=== PATIENT | female | born 1955 | race Caucasian/White ===

== ENCOUNTER 2019-08-26 17:24 | Inpatient (IN) ==
[2019-08-26] MEDS ORDERED: ASPIRIN PO ONE (17:57)
--- NOTE | 2019-08-26 18:41 | Diag Imaging Result Doc PS360 ---
CHEST-2 VIEWS - 08/26/2019 INDICATION: cp/productive cough COMPARISON: 08/11/2019 FINDINGS: There is some stable ill-defined infiltrate throughout the right midlung and lung base. There is also some minimal stable infiltrate throughout the left lung base. No new infiltrates. Heart size remains borderline. Pulmonary vascularity is top normal. No pneumothorax or pleural effusion. IMPRESSION: Stable ill-defined bilateral infiltrates consistent with residual bronchopneumonia or pulmonary edema. Electronically signed by Rober España 08/26/2019 6:39 PM
--- NOTE | 2019-08-26 19:54 | PROVIDER DOCUMENTATION ---
HPI-Chest Pain - General Chief Complaint: Chest Pain Stated Complaint: CP HEART PATIENT Time Seen by Provider: 08/26/19 19:43 Source: patient Allergies/Adverse Reactions: Patient Allergies Allergy/AdvReac Type Severity Reaction Status Date / Time allopurinol Allergy Unknown Verified 07/23/19 10:32 Iodinated Contrast Media Allergy Unknown Verified 07/23/19 10:32 [IV Dye] lisinopril Allergy Unknown Verified 07/23/19 10:32 Sulfa (Sulfonamide Allergy Unknown Verified 07/23/19 10:32 Antibiotics) Home Medications: Home Medication List Medication Instructions Recorded Confirmed Last Taken Type ATORVAstatin [Lipitor] 80 mg PO DAILY 05/23/19 08/11/19 08/11/19 History Albuterol Sulfate [Proair 90 mcg INHALATION Q6H PRN PRN 05/23/19 08/11/19 08/11/19 History Respiclick] Alogliptin Benzoate [Alogliptin] 6.25 mg PO DAILY 05/23/19 08/11/19 08/11/19 History Aspirin EC 81 mg PO DAILY 05/23/19 08/11/19 08/11/19 History Baclofen 10 mg PO DAILY 05/23/19 08/11/19 08/11/19 History Carvedilol 6.25 mg PO BID 05/23/19 08/11/19 08/11/19 History Cholecalciferol (Vit D3) [Vitamin 1,000 unit PO DAILY 05/23/19 08/11/19 08/11/19 History D3] Citalopram [Celexa] 40 mg PO DAILY 05/23/19 08/11/19 08/11/19 History Ferrous Sulfate 324 mg PO DAILY 05/23/19 08/11/19 08/11/19 History Gabapentin 300 mg PO BID 05/23/19 08/11/19 08/11/19 History Insulin Aspart [Novolog Flexpen] 4 unit SQ TID 05/23/19 08/11/19 08/11/19 Histor y Insulin Glargine,Hum.rec.anlog 50 units SQ QHS 05/23/19 08/11/19 08/10/19 History [Lantus Solostar] Isosorbide Mononitrate [Isosorbide 90 mg PO DAILY 05/23/19 08/11/19 08/11/19 History Mononitrate ER] Levothyroxine [Synthroid] 88 microgm PO DAILY 05/23/19 08/11/19 08/11/19 History Lidocaine 4% Topical Solution 50 ml .SEE ORDER Q8H PRN PRN 05/23/19 08/11/19 08/11/19 History [Xylocaine 4% Topical Solution] Loratadine 10 mg PO DAILY 05/23/19 08/11/19 08/11/19 History Magnesium Oxide 400 mg PO DAILY 05/23/19 08/11/19 08/11/19 History Ondansetron [Zofran] 8 mg PO BID 05/23/19 08/11/19 08/11/19 History Oxybutynin Chloride 5 mg PO DAILY 05/23/19 08/11/19 08/11/19 History Tiotropium [place] Inhaler 18 mcg PO DAILY 05/23/19 08/11/19 08/11/19 History [Spiriva] Torsemide 20 mg PO BID 05/23/19 08/11/19 08/11/19 History Amoxicillin/Pot Clavulanate 500 mg PO BID 08/11/19 08/11/19 08/11/19 History [Augmentin] - History of Present Illness-CP Nature of Presenting Problem: 64 yof presents with c/o pressure like CP that radiates in to R neck. She took NTG at home and the pain improved wIth 2ND dose. She reports the pain remains low and tight without radiation at this time. She denies SOB, N/V/D, sweating when the pain occurred. [facility] and if admission is needed request to be sent there if bed is available Location: reports: substernal Chest Pain Radiation: reports: neck Quality of Pain: reports: pressure Severity in ED: moderate Onset/Duration: 4-6 hours ago Timing: still present, improving Context/Activities at Onset: reports: none Modifying Factors: improves with: other (ntg) Associated Symptoms: reports: denies symptoms Nitro Today/Relief: 0.4 mg x 2 Aspirin Treatment Today: no aspirin today Prior Chest Pain/Cardiac Workup: reports: angina Similar Symptoms Previously?: Yes Recently Seen Here or By Another Healthcare Provider: No Review of Systems - Adult - REVIEW OF SYSTEMS - ADULT Constitutional: reports: no symptoms reported. denies: see HPI, chills, fever, fatique, night sweats, weight gain, weight loss, other Eyes: reports: no symptoms reported. denies: see HPI, discharge, dry eyes, decreased vision, blurred vision, double vision, eye pain, redness, other Ears, Nose, Mouth & Throat: reports: no symptoms reported. denies: see HPI, ear discharge, ear pain, hearing loss, tinnitus, epistaxis, sinus problem, nose pain, loose teeth, mouth/dental pain, mouth swelling, hoarseness, throat pain, throat swelling, other Cardiovascular: reports: see HPI, chest pain, edema (reports not worse than usual) Respiratory: reports: no symptoms reported. denies: see HPI, chronic cough, cough, dyspnea on exertion, excessive sputum production, hemoptysis, pleurisy, shortness of breath, wheezing, other Gastrointestinal: reports: no symptoms reported. denies: see HPI, abdominal pain, hematemesis, constipation, diarrhea, difficulty swallowing, frequent heartburn, nausea, poor appetite, rectal bleeding, vomiting, other Genitourinary: reports: no symptoms reported. denies: see HPI, dysuria, discharge, frequency, flank pain, frequent UTI's, hematuria, hesitency, incontinence, urinary retention, urgency, other Musculoskeletal: reports: no symptoms reported. denies: see HPI, bone pain, back pain, frequent leg cramps, joint pain, joint swelling, muscle aches, muscle weakness, neck pain, other Integumentary: reports: no symptoms reported. denies: see HPI, hives, hair loss, itching, mole changes, nail changes, rash, skin sores/ulcer, skin thickening, other Neurological: reports: no symptoms reported. denies: see HPI, ataxia, dizziness/vertigo, headache/migraines, loss of balance, numbness, paresthesia, seizure, slurred speech, syncope, tremors, other Psychiatric: reports: no symptoms reported. denies: see HPI, anxiety, anti-depressant use, alcohol/drug dependence, depression, emotional problems, insomnia, panic attacks, suicidal thoughts, other Endocrine: reports: no symptoms reported. denies: see HPI, change in skin pigment, excessive sweating, goiter, cold intolerance, heat intolerance, increased hunger, increased thirst, polyuria, other Hematologic/Lymphatic: reports: no symptoms reported. denies: see HPI, blood clots, easy bruising, low blood count, lymphedema, prolonged bleeding, swollen lymph nodes, transfusions, other Allergic/Immunologic: reports: no symptoms reported. denies: see HPI, allergic reactions, allergic rhinitis, asthma, eczema, food allergy, frequent infections, hay fever, hives, positive PPD, urticaria, other Past History - Adult - PAST MEDICAL HISTORY-ADULT Review of Records: reports: Nursing Assessment Review, Social history reviewed & non-contributory. Cardiovascular: reports: CHF, HTN. denies: [place] Respiratory: reports: asthma, COPD Musculoskeletal: reports: denies history Neurological: reports: denies history Psychiatric: reports: denies history Endocrine/Immune: reports: thyroid disorder (hypothyroid) - PRIOR SURGERIES/PROCEDURES Surgical/Procedure History: denies: recent surgery Physical Exam-General - PHYSICAL EXAM-ADULT Initial Vital Signs Reviewed: Yes - CONSTITUTIONAL General Appearance: appears well, alert, no apparent distress - EYES Eyes: PERRL/EOMI, pink conjunctivae - HEAD, EARS, NOSE, MOUTH & THROAT HENMT: normocephalic/atraumatic, moist mucous membranes, normal ENT inspection - NECK Neck: non-tender, full range of motion, supple - RESPIRATORY Respiratory: chest non-tender, lungs clear, normal breath sounds, no pleuratic chest pain, no respiratory distress, no accessory muscle use - CARDIOVASCULAR Cardiovascular: normal peripheral pulses, regular rate, rhythm. negative: no edema (ble edema +1) - GASTROINTESTINAL (ABDOMEN) Abdominal Exam: normal bowel sounds, non tender, soft - LYMPHATIC Lymphatic: no adenopathy - MUSCULOSKELETAL Back Exam: normal inspection, no CVA tenderness, no vertebral tenderness Extremity: normal range of motion, non-tender, normal gait, swelling (BLE EDEMA) Peripheral Pulses: radial (R): 2+, radial (L): 2+ - SKIN Integumentary: normal color, normal turgor, warm/dry - NEUROLOGIC Neurologic: grossly normal - PSYCHIATRIC Psych/Mental Status: normal mood/affect, oriented x 3 - HEART Score HEART Score: History: Moderately Suspicious HEART Score: ECG: Normal HEART Score: Age: > or = 65 Years HEART Score: Risk Factors for Atherosclerotic Disease: > or = 3 Risk Factors or History of Atherosclerotic Disease HEART Score: Troponin: < or = Normal Limit Total HEART Score:: 5 Progress - PLAN OF CARE/RESULTS Progress/Plan/Lab Results: Vital Signs - 8 hr 08/26/19 17:30 08/26/19 20:53 08/26/19 21:01 Temperature 98.1 F 98.1 F Pulse Rate 79 69 67 Respiratory Rate 18 16 17 Blood Pressure 181/90 201/97 193/95 O2 Sat by Pulse Oximetry 97 100 100 08/26/19 21:31 Temperature Pulse Rate 67 Respiratory Rate 16 Blood Pressure 187/87 O2 Sat by Pulse Oximetry 99 Laboratory Results - last 24 hr 08/26/19 08/26/19 08/26/19 17:57 17:57 17:57 WBC 5.98 RBC 2.98 L Hgb 9.1 L Hct 30.4 L MCV 102.0 H MCH 30.5 MCHC 29.9 L RDW Std Deviation 14.9 H Plt Count 246 MPV 9.4 Neut % (Auto) 60.5 Lymph % (Auto) 23.4 [place] % (Auto) 11.7 H Eos % (Auto) 3.7 Baso % (Auto) 0.7 Neut # (Auto) 3.62 Lymph # (Auto) 1.40 [place] # (Auto) 0.70 H Eos # (Auto) 0.22 Baso # (Auto) 0.04 PT INR PTT (Actin FS) Sodium 143 Potassium 5.5 H Chloride 104 Carbon Dioxide 24 L Anion Gap 15 BUN 52 H Creatinine 2.8 H Estimated GFR/1.73 m2 17 BUN/Creatinine Ratio 19 Glucose 194 H Calculated Osmolality 304 Calcium 9.0 Total Bilirubin 0.37 AST 16 ALT 14 Alkaline Phosphatase 103 Creatine Kinase 219 H Creatine Kinase Index 1.8 CK-MB (CK-2) 3.86 Troponin T Wbl-F-Dsqddrtrovo Pept 982 H Total Protein 6.8 Albumin 4.0 Globulin 2.8 Albumin/Globulin Ratio 1.4 08/26/19 08/26/19 17:57 17:57 WBC RBC Hgb Hct MCV MCH MCHC RDW Std Deviation Plt Count MPV Neut % (Auto) Lymph % (Auto) [place] % (Auto) Eos % (Auto) Baso % (Auto) Neut # (Auto) Lymph # (Auto) [place] # (Auto) Eos # (Auto) Baso # (Auto) PT 13.0 INR 0.97 PTT (Actin FS) 23.9 Sodium Potassium Chloride Carbon Dioxide Anion Gap BUN Creatinine Estimated GFR/1.73 m2 BUN/Creatinine Ratio Glucose Calculated Osmolality Calcium Total Bilirubin AST ALT Alkaline Phosphatase Creatine Kinase Creatine Kinase Index CK-MB (CK-2) Troponin T < 0.010 Law-G-Bxgkcimmwej Pept Total Protein Albumin Globulin Albumin/Globulin Ratio Orders Category Date Time Status Cardiac Monitoring DIRECTED Care 08/26/19 17:58 Active Oxygen Therapy- ED Nursing DIRECTED Care 08/26/19 17:58 Active Saline Loc NOW Care 08/26/19 17:58 Active CHEST-2 VIEWS [RAD] Stat Exams 08/26/19 17:58 Completed CBC WITH ELECTRONIC DIFF [HEME] Stat Lab 08/26/19 17:57 Completed CK PROFILE [SP CHEM] Stat Lab 08/26/19 17:57 Completed COMPREHENSIVE METABOLIC PANEL [CHEM] Stat Lab 08/26/19 17:57 Completed PRO B-NATRIURETIC PEPTIDE Stat Lab 08/26/19 17:57 Completed PROTIME WITH INR [COAG] Stat Lab 08/26/19 17:57 Completed PTT [COAG] Stat Lab 08/26/19 17:57 Completed TROPONIN T Stat Lab 08/26/19 17:57 Completed TROPONIN T Stat Lab 08/26/19 21:38 Received Aspirin Med 08/26/19 17:57 Discontinued 325 mg PO NOW ONE Levofloxacin 500 mg/D5w [Levaquin 500 mg/D5w] Med 08/26/19 21:52 Active 500 mg in 100 ml IV NOW CP/SOB/Palp >45 yrs of Age Stat Oth 08/26/19 17:57 Ordered EKG [EKG] Stat Ther 08/26/19 17:58 Draft EKG [EKG] Stat Ther 08/26/19 20:35 Ordered Result Diagrams: 08/26/19 17:57 08/26/19 17:57 - EKG 1 Time of EKG reading by physician:: 17:42 EKG Read and Signed by:: Quinton Patel EKG Interpretation (*Must complete 3 of following elements*): Normal Rate: 78 Rhythm: NSR [place]: normal QRS: normal NE Interval: normal ST Wave: normal Prior EKG Comparison: unchanged from prior 2 Time of EKG reading by physician:: 21:30 EKG Read and Signed by:: Lida Escalante EKG Interpretation (*Must complete 3 of following elements*): Normal Rate: 66 Rhythm: NSR [place]: normal QRS: normal NE Interval: normal ST Wave: normal Prior EKG Comparison: unchanged from prior - CONSULTS/PCP/HOSPITALIST Notification #1 *Consult/PCP/Hospitalist*: [facility] Time Discussed: 21:39 Reason/Comments: NO BEDS #2 Consult: DR HERNANDEZ Time Discussed: 21:53 Consult Disposition: Admit Departure - Departure Date of Disposition Decision: 08/26/19 Time of Disposition Decision: 21:54 DIAGNOSIS: Pneumonia, Chest pain Disposition: HOME 01 Certified Medical Emergency: Emergent Condition: Stable Referrals and Follow-Ups: None,PCP [Primary Care Provider] - - Critical Care Note This patient required my direct & personal management of CC.: No Attestation - Physician/ JASS Attestation Patient care was provided by Advanced Practice Provider:: Yes Advanced Practice Provider:: Suzanna Levine Advanced Practice Provider documentation review:: The Mid-level provider documentation, treatment plan and medical decision making was reviewed by the physician who agrees with all treatment and medical decision making by the MLP. The physician spent face to face time with patient:: No Advanced Practice Provider documentation review:: Supervising physician onsite and consulted in the evaluation and care of this patient. The physician did not have a face to face encounter with the patient.
[2019-08-26 20:04] LABS: BASO# 0.04 X1000 (0.0-0.2); BASO% 0.7 % (0.0-0.8); EOS# 0.22 X1000 (0.0-0.7); EOS% 3.7 % (0.0-10.0); HEMATOCRIT 30.4 % (37.0-47.0); HEMOGLOBIN 9.1 g/dL (12.0-16.0); LYMPH% 23.4 % (20.5-51.1); MCH 30.5 PG (27-31); MCHC 29.9 g/dL (33-37); MONO% 11.7 % (1.7-9.3); MPV 9.4 FL (7.4-10.4); NEUT# 3.62 X1000 (1.4-6.5); NEUT% 60.5 % (42.2-75.2); PLT 246 X1000 (130-400); RBC 2.98 XMIL (4.2-5.4); RDW 14.9 % (11.5-14.5); WBC 5.98 X1000 (4.8-10.8)
[2019-08-26 20:06] LABS: INR 0.97
[2019-08-26 20:07] LABS: PTT 23.9 Seconds (22.3-41.8)
--- NOTE | 2019-08-26 20:10 | EKG Report ---
Test Performed on : 08/26/2019 5:42:44 PM Test Reason : chest pain Blood Pressure : / mmHG Vent. Rate : 078 BPM Atrial Rate : 078 BPM P-R Int : 158 ms QRS Dur : 080 ms QT Int : 388 ms P-R-T Axes : 050 -01 064 degrees QTc Int : 442 ms Normal sinus rhythm. Normal ECG When compared with ECG of 26-AUG-2019 17:42, (Unconfirmed) Sinus rhythm. has replaced Junctional rhythm. T wave inversion no longer evident in Inferior leads T wave inversion no longer evident in Lateral leads Unconfirmed Result
[2019-08-26 20:34] LABS: ALB/GLOB RATIO 1.4; CREATININE 2.8 mg/dL (0.5-0.9); POTASSIUM 5.5 mmol/L (3.5-5.1); TOTAL BILIRUBIN 0.37 mg/dL (0.20-1.00); TOTAL PROTEIN 6.8 g/dL (6.3-8.3)
[2019-08-26 20:58] LABS: CK INDEX 1.8 (0.0-2.5); CK-MB 3.86 ng/mL (0.0-5.0)
[2019-08-26] MEDS ORDERED: LEVAQUIN 500 MG/D5W 500 MG/100 ML IVPB IV ONE (21:52)
--- NOTE | 2019-08-26 22:57 | EKG Report ---
Test Performed on : 08/26/2019 9:30:37 PM Test Reason : CP Blood Pressure : / mmHG Vent. Rate : 066 BPM Atrial Rate : 066 BPM P-R Int : 158 ms QRS Dur : 080 ms QT Int : 422 ms P-R-T Axes : 047 -07 054 degrees QTc Int : 442 ms Normal sinus rhythm. Cannot rule out Anterior infarct , age undetermined Abnormal ECG When compared with ECG of 26-AUG-2019 17:42, (Unconfirmed) No significant change was found Unconfirmed Result
--- NOTE | 2019-08-26 23:32 | HISTORY AND PHYSICAL ---
PRIMARY CARE PHYSICIAN: At the [facility]. CHIEF COMPLAINT: Chest pain. HISTORY OF PRESENTING ILLNESS: A 64-year-old female with a history of hypertension, diabetes mellitus type 2, CHF and COPD, who had presented to the emergency department with 1-day history of having as substernal pressure-like chest pain. The patient states that she also had some shortness of breath and the pain was radiating up to her jaw/neck region. The patient became concerned and subsequently had come to the emergency department. In the ED, she was evaluated and due to her presenting symptoms, it was thought that we will place her for observation for further evaluation and management. At time of my examination, patient denied any headache, fever, chills, nausea, vomiting, diarrhea, hemoptysis, melena, or any weight changes, but complained of chest pain. PAST MEDICAL HISTORY: Includes hypertension, diabetes mellitus type 2, CHF, hyperlipidemia, COPD, hypothyroidism, chronic kidney disease. PAST SURGICAL HISTORY: Cholecystectomy, cataract surgery. ALLERGIES: Allopurinol, lisinopril, sulfa, and IV contrast dye. CURRENT MEDICATIONS: Albuterol nebulizers q.6 hours, alogliptin 6.25 mg p.o. daily, aspirin 81 mg p.o. daily, atorvastatin 80 mg p.o. daily, carvedilol 6.25 mg p.o. b.i.d., citalopram 40 mg p.o. daily, gabapentin 300 mg p.o. b.i.d., NovoLog Flex Pen 4 units subcu t.i.d., Lantus 50 units subcutaneous at bedtime, isosorbide mononitrate 90 mg p.o. daily, levothyroxine 88 mcg p.o. daily, oxybutynin 5 mg p.o. daily, torsemide 20 mg p.o. b.i.d. SOCIAL HISTORY: No history of smoking, alcohol or illicit drug use. FAMILY HISTORY: Positive for coronary disease in Father. REVIEW OF SYSTEMS: Fourteen-point review of systems is as in HPI. Other systems negative. PHYSICAL EXAMINATION: GENERAL: Cooperative, friendly female. She is resting more comfortably now. VITAL SIGNS: Temperature 97.9 degrees, pulse 67, respirations 16, blood pressure 187/97. HEENT: Atraumatic, normocephalic. Extraocular movements intact. PERRLA. NECK: No masses. CHEST: Bibasilar rales. CARDIOVASCULAR: Regular rate and rhythm. ABDOMEN: Soft. Positive bowel sounds. EXTREMITIES: Trace edema. NEUROLOGIC: She is awake, alert, oriented x3. GENITOURINARY: No bladder distention. SKIN: Warm. LABORATORIES AND STUDIES: WBC 5.98, hemoglobin 9.1, hematocrit 30.4, platelets 246,000. Sodium 143, potassium 5.5, chloride 104, CO2 of 24, BUN is 52, creatinine is 2.8. Glucose is 194, troponin 0.010. Chest x-ray shows residual bronchopneumonia or pulmonary edema. ASSESSMENT: This is a 64-year-old female with a history of hypertension, diabetes mellitus type 2, congestive heart failure, chronic obstructive pulmonary disease, chronic kidney disease, who had presented to the emergency department with 1-day history of having chest pain. We will place the patient for observation for further evaluation and management. 1. Chest pain. 2. Diabetes mellitus type 2. 3. Hypertension. 4. Chronic obstructive pulmonary disease. PLAN: 1. We will admit patient to medical floor with telemetry. 2. We will continue with cardiac workup. Check EKG, check serial cardiac enzymes. Have patient continue on aspirin. Will use sublingual nitroglycerin p.r.n. chest pain. 3. Monitor blood glucose and put patient on sliding scale insulin regimen. 4. We will monitor blood pressure. Resume antihypertensive agents. 5. Continue with DuoNebs p.r.n. 6. Put patient on DVT prophylaxis with SCDs. 7. We will continue to follow and reassess. Make further recommendations based on patient's clinical course. cc: Mario Pierce MD
[2019-08-27] MEDS ORDERED: TYLENOL PO PRN (00:27)
[2019-08-27] MEDS ORDERED: ZOFRAN IV PRN (00:27)
[2019-08-27] MEDS ORDERED: NITROGLYCERIN SL PRN (00:27)
[2019-08-27 02:07] LABS: CK INDEX 1.7 (0.0-2.5); CK-MB 3.02 ng/mL (0.0-5.0)
[2019-08-27 05:37] LABS: CHOLESTEROL 140 mg/dL (0-200); HDL 45 mg/dL (45-65); LDL 64 mg/dL; TRIGLYCERIDES 153 mg/dL (35-135); VLDL 31 mg/dL
[2019-08-27] MEDS ORDERED: PRILOSEC PO SCH (07:00)
[2019-08-27] MEDS ORDERED: ASPIRIN PO SCH (09:00)
[2019-08-27] MEDS: HUMULIN R SUBQ SCH ×4 (11:50→22:55)
[2019-08-27] MEDS: COREG PO SCH ×2 (13:06→22:55)
[2019-08-27] MEDS: ISORDIL PO SCH ×2 (13:06→16:51)
[2019-08-27] MEDS: APRESOLINE PO SCH ×2 (13:06→16:51)
--- NOTE | 2019-08-27 14:04 | Diag Imaging Result Doc PS360 ---
EXAM: CT THORAX W/O CONTRAST INDICATION: chest pain, dyspnea TECHNIQUE: This exam was performed using automated exposure control, adjustment of mA or kV according to patient size, and/or use of iterative reconstruction technique. COMPARISON: None. FINDINGS: There is patchy airspace consolidation throughout the right lung that is worst centrally and at the right lung base consistent with pneumonia. Some of the consolidation is vaguely nodular and there are a few tree-in-bud opacities on the right indicating bronchiolitis. There is much milder consolidation at the lateral left lower lobe and the lingula at the left lung base. There were a few calcified granulomata in the left lower lobe. There is no pleural fluid collection and no pneumothorax. There are calcified mediastinal and left hilar lymph nodes indicating prior granulomatous disease. There is no cardiomegaly. There is a moderate-sized hiatal hernia containing gastric debris and there is air in the esophageal lumen suggesting reflux. Limited views of the upper abdomen are essentially unremarkable, otherwise. IMPRESSION: 1.Patchy infiltrates seen throughout the right lung and much milder infiltrate at the left lung base consistent with multilobar pneumonia. 2.Moderate-sized hiatal hernia with gastric debris and air in the esophagus indicating reflux. Electronically signed by Nuno Mars 08/27/2019 2:02 PM
[2019-08-27] MEDS ORDERED: VENTOLIN HFA INH PRN (15:44)
[2019-08-27] MEDS: ZOSYN 3.375 GM in NS 50 ML IV SCH (19:15)
[2019-08-27] MEDS ORDERED: COREG PO SCH (21:00)
--- NOTE | 2019-08-27 21:08 | PROGRESS NOTE ---
DATE: 08/27/2019 SUBJECTIVE: The patient has a cough. There is some concern over possible pneumonia. She has had a recent aspiration type pneumonia. OBJECTIVE: Blood pressure is 133/49, heart rate 65, respiratory rate 18, temperature 98.8 degrees.Cardiovascular: Regular rate and rhythm. Pulmonary: Bilateral breath sounds. Clear to auscultation. GI: Soft, nontender, nondistended. Bowel sounds are positive. LABORATORY DATA: I do not have any white count today, but was normal yesterday. Sedimentation rate up at 69. Uric acid is 8.3. Chest CT shows some patchy infiltrates consistent with multilobar pneumonia and she has fairly bad reflux too. PROBLEM LIST: 1. Likely recurrent aspiration type pneumonia. We will initiate antibiotics and follow. Apparently, she has had issues with that before. We will get a pulmonary opinion as well. I appreciate Dr. Kim's noncardiac input on that. We will also work on aspiration risk and reflux risk. 2. Chest pain. I guess Dr. Kim feels that this is noncardiac and adjusted her medications. She had an echocardiogram in May that was normal. She had a perfusion scan in May that did not show any major ischemia, so I will defer to them about any other further testing. 3. Type 2 diabetes. We will continue regular medications and monitor. cc: Grupo Rubin MD
--- NOTE | 2019-08-27 21:21 | CARDIOLOGY CONSULTATION ---
DATE: 08/27/2019 CHIEF COMPLAINT: Chest pain. REQUESTING TEAM: Hospitalist. HISTORY: Ms. Roldan is a 64-year-old female who is normally followed by the [facility]. She presented to the emergency room at 7:30 p.m. last night with complaints of recurrent substernal chest pain, radiates to the right side of the neck. She took two nitroglycerin doses and the pain very much remained the same until she showed up in the emergency room. Thereafter, it became like a tightness and eventually gradually subsided. The patient says that this is the same pain that she has had for the past five years. She has had previous evaluations in [place] including a heart catheterization where they told her that she had "three blockages" and they prescribed nitroglycerin. They told her that whenever the pain does not go away after two nitroglycerin, she needs to report to the ER. She was seen recently in this hospital by our team on May 23. At that time, Dr. Kaur saw her. They did an echocardiogram that showed aortic valve sclerosis, trace mitral regurgitation, normal EF of 60%, question of diastolic dysfunction. They did a myocardial perfusion stress test on May 25, that showed a small size, mild intensity fixed defect in the distal anterior septal wall. No ischemia. Medical therapy recommended. The patient has had multiple troponin levels checked thus far, four since yesterday, and previously she has had another four and all of them have been negative. Her proBNP level is slightly elevated at 982 pg/mL. That would be about four times baseline. LDL cholesterol is 64, HDL is 45, triglycerides of 153. The patient feels fine at this time. Her EKG at the time of initial encounter shows sinus rhythm with no ischemic ST changes. Chest x-ray at the time of initial presentation shows stable, ill- defined, bilateral infiltrates consistent with residual bronchopneumonia or pulmonary edema. PAST HISTORY: Positive for hypertension. She also has chronic kidney disease. Her creatinine level during the times that she has been in this hospital has gone from 2.7 up to 2.8, then down to 2.1, and back up to 2.8. She has COPD. She has had some diastolic heart failure, hyperlipidemia, hypothyroidism. SURGICAL HISTORY: She had a cholecystectomy, cataract extraction. SOCIAL HISTORY: She is to her second . She has one son. She is disabled. She is not a smoker or drinker. FAMILY HISTORY: Father had coronary heart disease. ALLERGIES: Allopurinol, IV contrast, lisinopril, sulfa drugs. HOME MEDICATIONS: Include acetaminophen, albuterol sulfate, alogliptin 6.25 daily, aspirin 81 daily, carvedilol 6.25 twice a day, baclofen 10 mg daily, atorvastatin 80 daily, citalopram 40 daily, ferrous sulfate 324 at bedtime, gabapentin 300 twice a day, insulin aspartate 4 units 3 times a day, Lantus 45 units at bedtime, isosorbide mononitrate 90 mg daily, levothyroxine 88 mcg daily, magnesium oxide, oxybutynin, Zofran, tiotropium, Spiriva, torsemide 20 twice a day. REVIEW OF SYSTEMS: She ambulates with a walker. She is morbidly obese. Body mass index is 49.5. She has difficulty getting around because of multiple arthritic pains. She has this pattern of recurrent chest pains. They happen not very often, sometimes every 2 or 3 months. They are not provoked by any particular stress. PHYSICAL EXAMINATION: Vital signs: Blood pressure 161/77, temperature 98.4 degrees, pulse 74, respirations 18. General: She is obese, alert, oriented, in no distress. HEENT: Poor dentition. Neck: Veins not distended. Chest: Sounds clear to auscultation and percussion. Heart: Sounds are regular and rhythmic. I do not hear any obvious significant gallop or murmur. Abdomen: Obese, nontender. No masses. No hepatomegaly. Extremities: Trace edema. Neurologic: Nonfocal. Moves all 4 extremities. BLOOD WORK: Her hemoglobin is 9.1, hematocrit 30.4, MCV 102 fL, RDW 14.9. PT, PTT normal. Sedimentation rate is 69 mL/hour. C-reactive 6.36 mg/L. Her BUN is, as we said, 52, and creatinine is 2.8. IMPRESSION: 1. Patient who presents with recurrent chest pain which is a pain that she acknowledges as her "stable angina" type of pain. 2. Reported history of coronary heart disease. I do not have any records indicating the extent of the disease nor when it was done. What we know is that her last stress test done just three months ago was normal. 3. Morbid obesity. 4. Chronic kidney disease. 5. Hyperlipidemia. 6. Hypertension. RECOMMENDATIONS: At this time, I would suggest to optimize her medical therapy. Instead of using isosorbide mononitrate, I will go with isosorbide dinitrate plus hydralazine to optimize her blood pressure. We could make the carvedilol 12.5 twice a day. We will check inflammatory markers, get a CT scan of the thorax without contrast. Further advice will be forthcoming. Thank you for the opportunity to participate in her evaluation. cc: Pilo Lilly MD
[2019-08-27] MEDS: LIPITOR PO SCH (22:54)
[2019-08-27] MEDS: VITAMIN D PO SCH (22:55)
[2019-08-27] MEDS: PRILOSEC PO SCH (22:55)
[2019-08-27] MEDS: DEMADEX PO SCH (22:55)
[2019-08-27] MEDS: NEURONTIN PO SCH (22:55)
[2019-08-27] MEDS: FERROUS SULFATE PO SCH (22:55)
[2019-08-28] MEDS: ZOSYN 3.375 GM in NS 50 ML IV SCH ×4 (01:30→17:57)
[2019-08-28] MEDS: PRILOSEC PO SCH ×2 (06:34→20:44)
[2019-08-28] MEDS: LOVENOX SUBQ SCH (06:35)
[2019-08-28] MEDS: HUMULIN R SUBQ SCH ×4 (06:54→20:46)
[2019-08-28 08:10] LABS: BASO# 0.04 X1000 (0.0-0.2); BASO% 0.7 % (0.0-0.8); EOS# 0.22 X1000 (0.0-0.7); EOS% 3.7 % (0.0-10.0); HEMATOCRIT 33.2 % (37.0-47.0); HEMOGLOBIN 9.7 g/dL (12.0-16.0); IMM GRAN# 0.07 X1000 (0.0-0.04); IMM GRAN% 1.2 % (0.0-0.5); LYMPH% 25.4 % (20.5-51.1); MCH 29.5 PG (27-31); MCHC 29.2 g/dL (33-37); MCV 100.9 FL (81-99); MONO# 0.51 X1000 (0.11-0.59); MONO% 8.6 % (1.7-9.3); NEUT# 3.57 X1000 (1.4-6.5); NEUT% 60.4 % (42.2-75.2); PLT 234 X1000 (130-400); RBC 3.29 XMIL (4.2-5.4); WBC 5.91 X1000 (4.8-10.8)
[2019-08-28 08:30] LABS: CALCIUM 9.6 mg/dL (8.8-10.2); CREATININE 2.7 mg/dL (0.5-0.9); POTASSIUM 5.4 mmol/L (3.5-5.1)
[2019-08-28] MEDS ORDERED: IMDUR PO SCH (09:00)
[2019-08-28] MEDS: DEMADEX PO SCH ×2 (10:02→20:45)
[2019-08-28] MEDS: ASPIRIN EC PO SCH (10:02)
[2019-08-28] MEDS: SYNTHROID PO SCH (10:02)
[2019-08-28] MEDS: LIORESAL PO SCH (10:02)
[2019-08-28] MEDS: ISORDIL PO SCH ×3 (10:02→17:20)
[2019-08-28] MEDS: APRESOLINE PO SCH ×3 (10:02→17:20)
[2019-08-28] MEDS: NEURONTIN PO SCH ×2 (10:02→20:46)
[2019-08-28] MEDS: DITROPAN PO SCH (10:03)
[2019-08-28] MEDS: CELEXA PO SCH (10:03)
[2019-08-28] MEDS: PATIENT'S OWN MED PO SCH (10:03)
[2019-08-28] MEDS: COREG PO SCH ×2 (10:03→20:45)
[2019-08-28] MEDS: LOKELMA POWDER PACKET PO SCH (15:15)
--- NOTE | 2019-08-28 18:12 | PROGRESS NOTE ---
DATE: 08/28/2019 SUBJECTIVE: Patient has no major complaints. OBJECTIVE: Vital Signs: Blood pressure is 149/67, heart rate 58, respiratory 18, temperature 98.1 degrees, 100% on room air. Cardiovascular: Regular rate and rhythm. Pulmonary: Bilateral breath sounds clear to auscultation. Gastrointestinal: Abdomen was soft, nontender, nondistended. Bowel sounds are positive. LABORATORY DATA: White count 5, hemoglobin and hematocrit 9 and 33, platelets 234,000, potassium 5.4, creatinine 2.7. PROBLEM LIST: 1. Aspiration-type pneumonia. She is on antibiotics with Zosyn. We will continue to follow. I have asked for a pulmonary opinion just because she has recurrent pneumonia, but it is most likely related to severe reflux. Clinically, she looks better. I anticipate discharge hopefully soon. 2. Atypical chest pain. Her recent cardiac workup is negative. Dr. Lilly feels this is likely noncardiac, probably a mixture of gastroesophageal reflux disease and her pneumonia. 3. Type 2 diabetes is stable. 4. Disposition: I anticipate discharge tomorrow if things continue to stabilize. 1. Hyperkalemia. We will treat and follow closely. cc: Grupo Rubin MD
--- NOTE | 2019-08-28 18:44 | PROGRESS NOTE ---
DATE: 08/28/2019 SUBJECTIVE: The patient has complaints of nausea, but that is it. No evidence of bleeding. OBJECTIVE: Vital Signs: Her blood pressure is 139/55, heart rate of 54, respiratory rate 22, temperature of 98 degrees, 93% on 2 L. Cardiovascular: Regular rate and rhythm. Pulmonary: Bilateral breath sounds. Clear to auscultation. Gastrointestinal: Abdomen soft, nontender, nondistended. Bowel sounds are positive. LABORATORY DATA: Hemoglobin and hematocrit is up to 8 and 28, white count of 5. Rest of her electrolytes are stable. PROBLEM LIST: 1. Chronic acute on chronic gastrointestinal bleed, but no clear source. She is off Xarelto. Her hemoglobin and hematocrit is stable. Continue to follow. Agree with Dr. Lockett that she is going to have to stop her Xarelto. She is a candidate for most likely WATCHMAN or non- anticoagulation measures but she is 89 and she is not going to agree to any invasive procedure. She will not even accept a colonoscopy. 2. Atrial fibrillation appears to be stable. We will continue to monitor. DISPOSITION: Possibly home tomorrow if she is stable. Her CT scan shows some pleural effusions. I am going to give her a little bit of Lasix. She is supposed to be on Lasix. I am not quite sure why we are not giving it to her, but we will see how things look. Anticipate discharge tomorrow if stable. cc: Grupo Rubin MD
[2019-08-28] MEDS: VITAMIN D PO SCH (20:46)
[2019-08-28] MEDS: LIPITOR PO SCH (20:46)
[2019-08-28] MEDS: FERROUS SULFATE PO SCH (20:47)
--- NOTE | 2019-08-28 22:22 | PULMONOLOGY CONSULTATION ---
DATE: 08/28/2019 REQUESTING CLINICIAN: Grupo Rubin MD REASON FOR CONSULTATION: Recurrent pneumonia. HISTORY OF PRESENT ILLNESS: Ms. Roldan is a 64-year-old white female with morbid obesity and a BMI approaching 50, coronary artery disease, diabetes mellitus for approximately 30 years, gastroparesis, and a hiatal hernia who was admitted to the hospital in July when she woke up in the morning with nausea and vomiting and developed a pneumonia. The patient reports she has had difficulty with gastroparesis and emptying her stomach. The patient reports her largest meal is in the evening. She does not snack after supper. The patient previously had her head elevated on a wedge pillow, but prior to the last visit, she vomited on the pillow, and this was discarded. It has not yet been replaced. The patient was evaluated in the emergency room 08/26/2019 with chest pressure which radiated into her neck. She was evaluated by Cardiology who recommended maximizing her cardiac medications. She did have a CT scan of the thorax performed yesterday, which revealed patchy infiltrates in the right lung with milder infiltrates at the left base along with a moderate size hiatal hernia with debris in the esophagus. PAST MEDICAL HISTORY/PROBLEM LIST: 1. Coronary artery disease with prior cardiac catheterization. 2. Long history of diabetes mellitus. 3. Hiatal hernia. 4. Gastroesophageal reflux. 5. Morbid obesity with a BMI of 50. 6. Hypothyroidism. 7. Diastolic dysfunction. 8. Chronic kidney disease. 9. Status post cholecystectomy. 10. Status post cataract surgery. SOCIAL HISTORY: Patient denies tobacco use. No alcohol use listed. FAMILY HISTORY: Noncontributory to current presentation. REVIEW OF SYSTEMS: Notable for cough, heartburn, chest pressure. PHYSICAL EXAMINATION: General: Reveals a morbidly obese white female resting comfortably and in no distress. Vital signs: Blood pressure 120/40, heart rate 61, respiratory rate 18, oxygen saturation 100% on 2 L per nasal cannula. HEENT: Pupils are equal and reactive. Oropharynx appears clear. Neck: Supple. Chest: Reveals faint crackles at the right base. Cardiac: S1, S2. Abdomen: Obese and soft. Extremities: Reveal trace edema. LABORATORIES: No new culture data obtained during this hospitalization. White blood count 5.9, hemoglobin 9.7, platelet count 234,000. IMPRESSION: A 64-year-old with: 1. Hypoxemic respiratory failure. 2. Morbid obesity. 3. Gastroparesis. 4. Hiatal hernia. 5. Hypoxemic respiratory failure. 6. Aspiration pneumonitis. DISCUSSION: A 64-year-old with problems outlined above. It is not clear whether infiltrates on current CT scan are new or represent residual findings from prior scan. I would recommend completing a course of antibiotics, which could be completed orally as an outpatient. The patient has poor dietary hygiene along with gastroparesis and is at risk for recurrent aspiration events. In addition, she was previously sleeping on a wedge, but after this became soiled when she vomited, it was discarded and will need to be replaced. RECOMMENDATIONS: 1. Agree with current antibiotic regimen. Consider discharge on course of Augmentin. 2. Encourage patient to follow reflux precautions. She should eat a very small meal at supper, she should separate supper from bedtime by several hours and she should sleep elevated. If she continues to have reflux symptoms at night, she should move her meal even earlier in the day, given her diabetes and known gastroparesis. 3. Continue oxygen therapy. 4. Encourage weight loss. cc: Stan Remy MD
[2019-08-29] MEDS: ZOSYN 3.375 GM in NS 50 ML IV SCH ×3 (00:32→12:15)
[2019-08-29] MEDS: PRILOSEC PO SCH (06:27)
[2019-08-29] MEDS: LOVENOX SUBQ SCH (06:27)
[2019-08-29] MEDS: HUMULIN R SUBQ SCH ×2 (06:28→12:14)
[2019-08-29 08:00] VITALS: BP 170/64
[2019-08-29] MEDS: DITROPAN PO SCH (09:37)
[2019-08-29] MEDS: CELEXA PO SCH (09:37)
[2019-08-29] MEDS: SYNTHROID PO SCH (09:37)
[2019-08-29] MEDS: LIORESAL PO SCH (09:37)
[2019-08-29] MEDS: NEURONTIN PO SCH (09:37)
[2019-08-29] MEDS: ASPIRIN EC PO SCH (09:38)
[2019-08-29] MEDS: DEMADEX PO SCH (09:38)
[2019-08-29] MEDS: APRESOLINE PO SCH ×2 (09:38→12:17)
[2019-08-29] MEDS: COREG PO SCH (09:38)
[2019-08-29] MEDS: ISORDIL PO SCH ×2 (09:38→12:17)
[2019-08-29] MEDS: PATIENT'S OWN MED PO SCH (09:42)
[2019-08-29] MEDS: LOKELMA POWDER PACKET PO SCH (11:53)
--- NOTE | 2019-08-29 14:12 | DISCHARGE SUMMARY ---
ADMISSION DATE: 08/26/2019 DISCHARGE DATE: 08/29/2019 DISCHARGE DIAGNOSES: 1. Aspiration type pneumonia. 2. Severe gastroesophageal reflux disease. 3. Type 2 diabetes. 4. Atypical chest pain. Briefly this is a 64-year-old female with history of hypertension, diabetes, CHF, usually a [facility] presenting with chest pain. She was admitted. Serial cardiac enzymes were obtained. She had a very recent workup within the last couple months, I think in May, with a negative echo and stress test. Dr. Lilly evaluated her and adjusted her medications and felt that this was likely noncardiac. Chest CT did show some patchy infiltrates consistent with pneumonia and a moderate hiatal hernia with reflux and she has had aspiration pneumonia before. In any case, she was placed on Zosyn. I got a pulmonary consult. He recommended anti-reflux regimen and follow up with her PCP. Clinically she has stabilized. We did adjust some of her medications as well and discharged her on Augmentin 875 q.12. We also started hydralazine and isosorbide dinitrate 20 t.i.d. OTHER DISCHARGE MEDICATIONS: 1. Ferrous sulfate 325 daily. 2. Lantus 45 at night. 3. Lipitor 80 daily. 4. Loratadine 10 daily. 5. Mag oxide 400 at bedtime. 6. Vitamin D3 1000 units daily. 7. Alogliptin 6.25 daily. 8. Aspirin 81 daily. 9. Baclofen 10 daily. 10. Coreg 6.25 b.i.d. 11. Celexa 40 daily. 12. Gabapentin 300 b.i.d. 13. She was changed to isosorbide from Imdur 90. 14. NovoLog 4 t.i.d. 15. Oxybutynin 5 daily. 16. ProAir daily. 17. Spiriva 18 daily. 18. Synthroid 88 daily. 19. Torsemide 20 b.i.d. 20. Zofran p.r.n. 21. Hydralazine 25 t.i.d. 22. Isordil 20 t.i.d. DISCHARGE CONDITION: Is stable. The patient is a [facility]. She will need a follow-up x-ray in 4 to 6 weeks. 32 minute discharge. cc: Grupo Rubin MD
--- NOTE | 2019-08-29 17:00 | PULMONOLOGY PROGRESS NOTE ---
DATE: 08/29/2019 SUBJECTIVE: The patient is awake, alert, and conversant. She reports she feels significantly better. OBJECTIVE: Vital Signs: Blood pressure 170/64, heart rate 60, respiratory rate 16, oxygen saturation 97% on room air. HEENT: Pupils are equal and reactive. Oropharynx appears clear. Neck: Supple. Chest: Reveals faint crackles at the right base. Cardiac: S1-S2. Abdomen: Obese and soft. Extremities: Without edema. LABORATORIES: No new chemistries or CBC today. IMPRESSION: A 64-year-old with 1. Morbid obesity. 2. Gastroparesis. 3. Hypoxemic respiratory failure. 4. Large hiatal hernia. 5. Aspiration pneumonitis. PLAN: 1. Anticipate discharge home today. She is going to receive a course of Augmentin. 2. Encourage patient to follow reflux precautions. This was discussed at length. She is aware that she should eat a small meal in the evening and should sleep elevated. She will obtain a new wedge for elevation. 3. Continue oxygen therapy. 4. Encourage weight loss. cc: Stan Remy MD
== END 2019-08-29 15:31 | disposition home or self-care (01) | DRG 178 ==
LOC: ED 17:24 → OBSVTOIN 23:51 → INTOOBSV 23:51 → EDIPHOLD 23:51 → SUATTDRO 23:51 → 3N 08-27 10:40
PROVIDERS: ATTEND Internal Medicine

== ENCOUNTER 2019-11-17 23:52 | Inpatient (IN) ==
--- NOTE | 2019-11-18 00:10 | PROVIDER DOCUMENTATION ---
HPI-Respiratory General - General Stated Complaint: sob Time Seen by Provider: 11/18/19 00:04 Source: patient Allergies/Adverse Reactions: Patient Allergies Allergy/AdvReac Type Severity Reaction Status Date / Time lisinopril Allergy Severe SHORTNESS Verified 11/18/19 00:47 OF BREATH Iodinated Contrast Media Allergy Intermediate ITCHING Verified 11/18/19 00:47 [IV Dye] Sulfa (Sulfonamide Allergy Intermediate RASH Verified 11/18/19 00:47 Antibiotics) allopurinol Allergy Unknown Unknown Verified 11/18/19 00:47 Home Medications: Home Medication List Medication Instructions Recorded Confirmed Last Taken Type ATORVAstatin [Lipitor] 80 mg PO QHS 05/23/19 08/27/19 08/25/19 20:00 History Albuterol Sulfate [Proair 90 mcg INHALATION Q6H PRN PRN 05/23/19 08/27/19 08/26/19 History Respiclick] Alogliptin Benzoate [Alogliptin] 6.25 mg PO DAILY 05/23/19 08/27/19 08/25/19 20:00 History Aspirin EC 81 mg PO DAILY 05/23/19 08/27/19 08/26/19 History Baclofen 10 mg PO DAILY 05/23/19 08/27/19 08/25/19 20:00 History Carvedilol 6.25 mg PO BID 05/23/19 08/27/19 08/26/19 History Cholecalciferol (Vit D3) [Vitamin 1,000 unit PO QHS 05/23/19 08/27/19 08/25/19 20:00 History D3] Citalopram [Celexa] 40 mg PO DAILY 05/23/19 08/27/19 08/26/19 History Ferrous Sulfate 324 mg PO QHS 05/23/19 08/27/19 08/25/19 20:00 History Gabapentin 300 mg PO BID 05/23/19 08/27/19 08/26/19 History Insulin Aspart [Novolog Flexpen] 4 unit SQ TID 05/23/19 08/27/19 08/26/19 History Insulin Glargine,Hum.rec.anlog 45 units SQ QHS 05/23/19 08/27/19 08/25/19 20:00 History [Lantus Solostar] Levothyroxine [Synthroid] 88 microgm PO DAILY 05/23/19 08/27/19 08/26/19 History Lidocaine 4% Topical Solution 50 ml .SEE ORDER Q8H PRN PRN 05/23/19 08/27/19 08:00 History [Xylocaine 4% Topical Solution] Loratadine 10 mg PO QHS 05/23/19 08/27/19 08/25/19 20:00 History Magnesium Oxide 400 mg PO QHS 05/23/19 08/27/19 08/25/19 20:00 History Ondansetron [Zofran] 8 mg PO BID PRN 05/23/19 08/27/19 08/26/19 History Oxybutynin Chloride 5 mg PO DAILY 05/23/19 08/27/19 08/26/19 History Tiotropium Dinosaur Inhaler 18 mcg PO DAILY 05/23/19 08/27/19 08/26/19 History [Spiriva] Torsemide 20 mg PO BID 05/23/19 08/27/19 08/26/19 History Acetaminophen E.r. [Tylenol 1,300 mg PO BID 08/27/19 08/27/19 08/26/19 07:00 History Arthritis] Amoxicillin/Potassium Clav 1 ea PO Q12H #14 tab 08/29/19 Unknown Rx [Augmentin 875-125 Tablet] Hydralazine [Apresoline] 25 mg PO TID #90 tab 08/29/19 Unknown Rx Isosorbide Dinitrate [Isordil] 20 mg PO TID #90 tab 08/29/19 Unknown Rx - History of Present Illness-Resp Nature of Presenting Problem: 64 YO F pmh for COPD, DM, HTN presents by EMS with c/o SOB that occurred acutely while she was sitting at home watching TV. on exam, she is in respiratory distress. When EMS arrived, pt was 71% on RA. Pt has c/o hematemesis and there is blood in emesis bag. Onset/Duration: reports: this evening Timing: reports: still present, improving Cough Quality/Degree: reports: productive cough, blood streaked sputum Episode Frequency: rare episodes Associated Symptoms: reports: cough, short of breath Similar Symptoms Previously?: No Recently seen or treated by another doctor?: No Review of Systems - Adult - REVIEW OF SYSTEMS - ADULT ROS:: limited per condition Constitutional: denies: chills, fever Eyes: reports: no symptoms reported Ears, Nose, Mouth & Throat: reports: no symptoms reported Cardiovascular: reports: no symptoms reported Respiratory: reports: cough Gastrointestinal: reports: hematemesis, frequent heartburn Integumentary: reports: no symptoms reported Neurological: reports: no symptoms reported Psychiatric: reports: no symptoms reported Past History - Adult - PAST MEDICAL HISTORY-ADULT Review of Records: reports: Old Records Reviewed, Social history reviewed & non- contributory. Cardiovascular: reports: CHF, HTN. denies: [place] Respiratory: reports: asthma, COPD Musculoskeletal: reports: denies history Neurological: reports: denies history Psychiatric: reports: denies history Endocrine/Immune: reports: thyroid disorder (hypothyroid) - PRIOR SURGERIES/PROCEDURES Surgical/Procedure History: denies: recent surgery - SOCIAL HISTORY Smoking: non-smoker Substance Use: denies Physical Exam-General - PHYSICAL EXAM-ADULT Initial Vital Signs Reviewed: Yes - CONSTITUTIONAL General Appearance: severe distress - EYES Eyes: PERRL/EOMI, pink conjunctivae - HEAD, EARS, NOSE, MOUTH & THROAT HENMT: normocephalic/atraumatic - NECK Neck: supple - RESPIRATORY Respiratory: crackles, rhonchi, other (coarse breath sounds and ronchi to right side of chest) - CARDIOVASCULAR Cardiovascular: tachycardia - GASTROINTESTINAL (ABDOMEN) Abdominal Exam: non tender, soft, other (obese) - MUSCULOSKELETAL Extremity: non-tender - SKIN Integumentary: normal color, normal turgor, warm/dry - NEUROLOGIC Neurologic: negative: facial droop, focal weakness Progress - PLAN OF CARE/RESULTS Progress/Plan/Lab Results: Vital Signs - 8 hr 11/18/19 00:09 11/18/19 02:00 Temperature 98.6 F Pulse Rate 114 H 74 Respiratory Rate 19 25 H Blood Pressure 227/115 120/73 O2 Sat by Pulse Oximetry 71 L 100 11/18/19 00:15 Influenza Screen - Final Nasopharyngeal Laboratory Results - last 24 hr 11/18/19 11/18/19 11/18/19 00:04 00:30 00:30 WBC RBC Hgb Hct MCV MCH MCHC RDW Std Deviation Plt Count MPV Immature Gran % (Auto) Neut % (Auto) Lymph % (Auto) [place] % (Auto) Eos % (Auto) Baso % (Auto) Immature Gran # (Auto) Neut # (Auto) Lymph # (Auto) [place] # (Auto) Eos # (Auto) Baso # (Auto) PT 13.8 INR 1.05 PTT (Actin FS) 25.1 Specimen Type ARTERIAL Sample Site R RADIAL pH 7.23 L pCO2 50 H pO2 144 H HCO3 19.7 L Base Excess -6.7 L Oxyhemoglobin 96.6 ABG O2 Sat (Calculated) 16.2 ABG O2 Saturation 98.2 ABG Carboxyhemoglobin 0.60 ABG Methemoglobin 0.9 Noman Test YES A-a O2 Difference 507.0 Total Hemoglobin 11.7 Lactate 0.90 Liter Flow 15.0 Blood Gas Modality NRB FiO2 % 100.0 Sodium Potassium Chloride Carbon Dioxide Anion Gap BUN Creatinine Estimated GFR/1.73 m2 BUN/Creatinine Ratio Glucose Calculated Osmolality Calcium Total Bilirubin AST ALT Alkaline Phosphatase Creatine Kinase Creatine Kinase Index CK-MB (CK-2) Troponin T High Sens Dnp-T-Pngrvhlgwis Pept 1234 H Total Protein Albumin Globulin Albumin/Globulin Ratio Plasma Lactate TSH 11/18/19 11/18/19 11/18/19 00:30 00:30 00:30 WBC 15.65 H RBC 3.73 L Hgb 11.1 L Hct 36.7 L MCV 98.4 MCH 29.8 MCHC 30.2 L RDW Std Deviation 14.8 H Plt Count 245 MPV 9.3 Immature Gran % (Auto) 0.2 Neut % (Auto) 92.8 H Lymph % (Auto) 4.2 L [place] % (Auto) 1.7 Eos % (Auto) 0.9 Baso % (Auto) 0.2 Immature Gran # (Auto) 0.03 Neut # (Auto) 14.52 H Lymph # (Auto) 0.66 L [place] # (Auto) 0.27 Eos # (Auto) 0.14 Baso # (Auto) 0.03 PT INR PTT (Actin FS) Specimen Type Sample Site pH pCO2 pO2 HCO3 Base Excess Oxyhemoglobin ABG O2 Sat (Calculated) ABG O2 Saturation ABG Carboxyhemoglobin ABG Methemoglobin Noman Test A-a O2 Difference Total Hemoglobin Lactate Liter Flow Blood Gas Modality FiO2 % Sodium 141 Potassium 5.9 H Chloride 110 H Carbon Dioxide 19 L Anion Gap 12 BUN 46 H Creatinine 2.2 H Estimated GFR/1.73 m2 23 BUN/Creatinine Ratio 21 Glucose 177 H Calculated Osmolality 298 Calcium 9.2 Total Bilirubin 0.40 AST 24 ALT 16 Alkaline Phosphatase 95 Creatine Kinase Creatine Kinase Index CK-MB (CK-2) Troponin T High Sens Sup-Y-Xzvjkmqvnzi Pept Total Protein 6.8 Albumin 3.8 Globulin 3.0 Albumin/Globulin Ratio 1.3 Plasma Lactate TSH 4.44 H 11/18/19 11/18/19 11/18/19 00:30 00:30 00:30 WBC RBC Hgb Hct MCV MCH MCHC RDW Std Deviation Plt Count MPV Immature Gran % (Auto) Neut % (Auto) Lymph % (Auto) [place] % (Auto) Eos % (Auto) Baso % (Auto) Immature Gran # (Auto) Neut # (Auto) Lymph # (Auto) [place] # (Auto) Eos # (Auto) Baso # (Auto) PT INR PTT (Actin FS) Specimen Type Sample Site pH pCO2 pO2 HCO3 Base Excess Oxyhemoglobin ABG O2 Sat (Calculated) ABG O2 Saturation ABG Carboxyhemoglobin ABG Methemoglobin Noman Test A-a O2 Difference Total Hemoglobin Lactate Liter Flow Blood Gas Modality FiO2 % Sodium Potassium Chloride Carbon Dioxide Anion Gap BUN Creatinine Estimated GFR/1.73 m2 BUN/Creatinine Ratio Glucose Calculated Osmolality Calcium Total Bilirubin AST ALT Alkaline Phosphatase Creatine Kinase 193 H Creatine Kinase Index 2.4 CK-MB (CK-2) 4.57 Troponin T High Sens 48 H Sxp-K-Ashddgbdjxn Pept Total Protein Albumin Globulin Albumin/Globulin Ratio Plasma Lactate 1.2 TSH Orders Category Date Time Status Cardiac Monitoring DIRECTED Care 11/18/19 00:05 Completed Cardiac Monitoring DIRECTED Care 11/18/19 00:21 Active IV Insertion ORDERED Care 11/18/19 00:21 Active Notify MD of + Sepsis Screen NOW Care 11/18/19 00:21 Active Notify Physician As Ordered Care 11/18/19 00:21 Active CHEST-1 VIEW [RAD] Stat Exams 11/18/19 00:[address] THORAX W/O CONTRAST [CT] Stat Exams 11/18/19 01:07 Taken ABG [RESP] Routine Lab 11/18/19 00:04 Completed BLOOD CULTURE [BLDCUL] Stat Lab 11/18/19 00:35 Results CBC WITH ELECTRONIC DIFF [HEME] Stat Lab 11/18/19 00:30 Completed CK PROFILE [SP CHEM] Stat Lab 11/18/19 00:30 Completed COMPREHENSIVE METABOLIC PANEL [CHEM] Stat Lab 11/18/19 00:30 Completed INFLUENZA SCREEN A/B Stat Lab 11/18/19 00:15 Completed LACTATE, PLASMA [CHEM] Q3H Lab 11/18/19 00:30 Completed LACTATE, PLASMA [CHEM] Q3H Lab 11/18/19 03:30 Uncollected LACTATE, PLASMA [CHEM] Q3H Lab 11/18/19 06:30 Uncollected PRO B-NATRIURETIC PEPTIDE Stat Lab 11/18/19 00:30 Completed PROTIME WITH INR [COAG] Stat Lab 11/18/19 00:30 Completed PTT [COAG] Stat Lab 11/18/19 00:30 Completed TROPONIN T HIGH SENSITIVITY Stat Lab 11/18/19 00:30 Completed TSH Stat Lab 11/18/19 00:30 Completed URINALYSIS W/POSS RFLX CULT [URINALYSIS] Stat Lab 11/18/19 00:05 Uncollected 0.9% Sodium Chloride Inj [Ns] 1,000 ml Med 11/18/19 00:22 Discontinued IV 999 mls/hr Methylprednisolone Sod Succ [Solu-Medrol] Med 11/18/19 00:13 Discontinued 125 mg IV NOW ONE Patiromer [Veltassa] Med 11/18/19 02:07 Discontinued 8.4 gm PO ONCE ONE Piperacillin/Tazobactam [Zosyn] 3.375 gm Med 11/18/19 01:53 Discontinued 0.9% Sodium Chloride Inj [Ns] 50 ml IV NOW Sodium Bicarbonate 4.2% Med 11/18/19 01:21 Discontinued 5 meq IV NOW ONE Sodium Bicarbonate 8.4% Med 11/18/19 01:32 Discontinued 50 meq IV PUSH NOW ONE Vancomycin 1 gm/Ns Med 11/18/19 02:09 Active 1 gm in 250 ml IV NOW Oxygen Device Stat Oth 11/18/19 00:21 Active EKG [EKG] Stat Ther 11/18/19 00:04 Ordered admitting for pneumonia with hypoxia and hematemesis and GERD and mixed acidosis and hyperkalemia Result Diagrams: 11/18/19 00:30 11/18/19 00:30 - REASSESSMENT Reassessment #1 Time Reassessed: 02:24 Status: improving (HR has improved to 70s, pt o2 status at 100% on non rebr eather, resp distress has improved. giving patiromer for hyperkalemia. BP has improved to 120s/70s.) - EKG 1 Time of EKG reading by physician:: 00:44 EKG Read and Signed by:: Maria Victoria Delgado EKG Interpretation (*Must complete 3 of following elements*): Abnormal Rate: 110 Rhythm: sinus tach QRS: normal [place] Interval: normal ST Wave: normal Prior EKG Comparison: unchanged from prior (sinus tach, otherwise unchanged from 08/26/19) - XRAY 1 XRAY Study: Chest Impression: Abnormal (extensive inflitrates on right side) - CT/MRI 1 CT Study: Thorax Impression: Abnormal, See EMR Report (airspace disease throughout right lung concerning for extensive right sided pna. subtle air space disease at inferior left lingula and left lower lobe. small hiatal ernia. flid in the esophagus most likely representing GERD.) - CONSULTS/PCP/HOSPITALIST Notification #1 *Consult/PCP/Hospitalist*: Dr. Puga Time Discussed: 02:32 Consult Disposition: Will see in ED Departure - Departure Date of Disposition Decision: 11/18/19 Time of Disposition Decision: 02:14 DIAGNOSIS: Pneumonia, Hematemesis, GERD (gastroesophageal reflux disease), Hypoxia Disposition: ADMITTED INPATIENT 09 Certified Medical Emergency: Emergent Condition: Stable - Critical Care Note This patient required my direct & personal management of CC.: No Attestation - Physician/ JASS Attestation Patient care was provided by Advanced Practice Provider:: No The physician spent face to face time with patient:: Yes Advanced Practice Provider documentation review:: Supervising physician onsite and consulted in the evaluation and care of this patient. The physician did have a face to face encounter with the patient.
[2019-11-18] MEDS ORDERED: SOLU-MEDROL IV ONE (00:13)
[2019-11-18] MEDS ORDERED: NS 1,000 ML IV ONE (00:22)
[2019-11-18 00:35] LABS: ALLEN TEST YES; BE -6.7 mmoll (-3.0-3.0); BLOOD TYPE ARTERIAL; HCO3-(ACT) 19.7 mmoll (20.0-26.0); METHB 0.9 % (0.0-1.5); O2(CT) 16.2 mL/dL (15.0-23.0); O2HB 96.6 % (95.0-99.0); PCO2(98.6) 50 mmHg (35-45); PO2(98.6) 144 mmHg (60-100); SAMPLE BLOOD; SAO2 98.2 % (95.0-100.0); THB 11.7 g/dL (11.5-17.4); pH(98.6) 7.23 (7.35-7.45)
[2019-11-18 00:36] LABS: MODALITY NRB
[2019-11-18] MEDS ORDERED: SODIUM BICARBONATE 4.2% IV ONE (01:21)
[2019-11-18 01:22] LABS: BASO# 0.03 X1000 (0.0-0.2); BASO% 0.2 % (0.0-0.8); EOS# 0.14 X1000 (0.0-0.7); EOS% 0.9 % (0.0-10.0); HEMATOCRIT 36.7 % (37.0-47.0); HEMOGLOBIN 11.1 g/dL (12.0-16.0); IMM GRAN# 0.03 X1000 (0.0-0.04); IMM GRAN% 0.2 % (0.0-0.5); LYMPH# 0.66 X1000 (1.2-3.4); LYMPH% 4.2 % (20.5-51.1); MCH 29.8 PG (27-31); MCHC 30.2 g/dL (33-37); MCV 98.4 FL (81-99); MONO# 0.27 X1000 (0.11-0.59); MONO% 1.7 % (1.7-9.3); MPV 9.3 FL (7.4-10.4); NEUT# 14.52 X1000 (1.4-6.5); NEUT% 92.8 % (42.2-75.2); PLT 245 X1000 (130-400); RBC 3.73 XMIL (4.2-5.4); RDW 14.8 % (11.5-14.5); WBC 15.65 X1000 (4.8-10.8)
[2019-11-18 01:26] LABS: INR 1.05; PROTIME 13.8 Seconds (11.0-16.0)
[2019-11-18 01:27] LABS: PTT 25.1 Seconds (22.3-41.8)
[2019-11-18 01:30] LABS: ALB/GLOB RATIO 1.3; ALBUMIN 3.8 g/dL (3.5-5.0); CALCIUM 9.2 mg/dL (8.8-10.2); CREATININE 2.2 mg/dL (0.5-0.9); POTASSIUM 5.9 mmol/L (3.5-5.1); TOTAL BILIRUBIN 0.4 mg/dL (0.20-1.00); TOTAL PROTEIN 6.8 g/dL (6.3-8.3)
[2019-11-18] MEDS ORDERED: SODIUM BICARBONATE 8.4% IV PUSH ONE (01:32)
[2019-11-18] MEDS ORDERED: ZOSYN 3.375 GM in NS 50 ML IV ONE (01:53)
[2019-11-18] MEDS ORDERED: VELTASSA PO ONE (02:07)
[2019-11-18] MEDS ORDERED: VANCOMYCIN 1 GM/NS 1 GM/250 ML IVPB IV ONE (02:09)
[2019-11-18 02:15] LABS: CK INDEX 2.4 (0.0-2.5); CK-MB 4.57 ng/mL (0.0-5.0)
--- NOTE | 2019-11-18 03:24 | EKG Report ---
Test Performed on : 11/18/2019 00:14:13 AM Test Reason : SOB Blood Pressure : / mmHG Vent. Rate : 110 BPM Atrial Rate : 110 BPM P-R Int : 166 ms QRS Dur : 084 ms QT Int : 320 ms P-R-T Axes : 040 -12 068 degrees QTc Int : 433 ms Sinus tachycardia. Otherwise normal ECG When compared with ECG of 26-AUG-2019 21:30, (Unconfirmed) Vent. rate has increased BY 44 BPM Unconfirmed Result
--- NOTE | 2019-11-18 06:49 | Diag Imaging Result Doc PS360 ---
CT THORAX W/O CONTRAST - 11/18/2019 INDICATION: dyspnea COMPARISON: Chest x-ray 11/18/2019, chest CT 08/27/2019 FINDINGS: There is no adenopathy. Heart size is normal. There is a significant hiatal hernia. There are cholecystectomy clips. There is fluid in the esophagus, there may be gastroesophageal reflux. There is extensive infiltrate all throughout the right lung. There is also some subtle infiltrate in the left lung base and left upper lobe. Major airways are all patent. There are moderate degenerative changes of the spine. No acute or suspicious bony lesion. IMPRESSION: 1. Severe bilateral multilobar pneumonia, right greater than left. 2. Hiatal hernia. Gastroesophageal reflux. This exam was performed using automated exposure control, adjustment of mA or kV according to patient size, and/or use of iterative reconstruction technique Electronically signed by Rober España 11/18/2019 6:47 AM
--- NOTE | 2019-11-18 06:53 | Diag Imaging Result Doc PS360 ---
CHEST-1 VIEW - 11/18/2019 INDICATION: SOB COMPARISON: 08/26/2019 FINDINGS: There is extensive alveolar infiltrate all throughout the right lung. There is also some hazy infiltrate in the left lung base. Heart size is top normal. No pneumothorax or pleural effusion. IMPRESSION: Multilobar bilateral pneumonia. Electronically signed by Rober España 11/18/2019 6:51 AM
[2019-11-18 08:07] LABS: URINE SOURCE CLEAN CATCH
[2019-11-18 08:12] LABS: BILIRUBIN URINE NEGATIVE (NEGATIVE); BLOOD URINE NEGATIVE (NEGATIVE); COLOR YELLOW; GLUCOSE URINE 70 mg/dL (NEGATIVE); KETONE URINE NEGATIVE (NEGATIVE); LEUKOCYTES URINE NEGATIVE (NEGATIVE); NITRITE URINE NEGATIVE (NEGATIVE); PROTEIN URINE 100 mg/dL (NEGATIVE); SP GRAVITY URINE 1.014; TURBIDITY URINE CLEAR (CLEAR); UR EPITHELIAL CELLS <10 /HPF (<10); URINE BACTERIA NEGATIVE /HPF; URINE RBC <10 /HPF (<10); URINE WBC <10 /HPF (<10); UROBILINOGEN URINE NORMAL (NORMAL)
[2019-11-18] MEDS ORDERED: VANCOMYCIN IV PER PHARMACY MISC SCH (08:45)
[2019-11-18 08:58] LABS: ALB/GLOB RATIO 1.4; ALBUMIN 3.9 g/dL (3.5-5.0); CALCIUM 9.5 mg/dL (8.8-10.2); CREATININE 2.2 mg/dL (0.5-0.9); MAGNESIUM 1.7 mg/dL (1.5-2.7); POTASSIUM 5.6 mmol/L (3.5-5.1); TOTAL BILIRUBIN 0.75 mg/dL (0.20-1.00); TOTAL PROTEIN 6.6 g/dL (6.3-8.3)
[2019-11-18] MEDS: ZOSYN 2.25 GM in NS 50 ML IV SCH ×3 (09:00→21:15)
[2019-11-18 09:22] LABS: ALLEN TEST YES; BE -3.9 mmoll (-3.0-3.0); BLOOD TYPE ARTERIAL; HCO3-(ACT) 21.9 mmoll (20.0-26.0); METHB 0.7 % (0.0-1.5); MODALITY CANNULA; O2(CT) 14.7 mL/dL (15.0-23.0); O2HB 95.3 % (95.0-99.0); PCO2(98.6) 40 mmHg (35-45); PO2(98.6) 82 mmHg (60-100); SAMPLE BLOOD; SAO2 97.1 % (95.0-100.0); THB 10.9 g/dL (11.5-17.4); pH(98.6) 7.34 (7.35-7.45)
[2019-11-18] MEDS: PROTONIX IV SCH ×2 (09:30→21:16)
[2019-11-18 09:46] LABS: CK INDEX 2.7 (0.0-2.5); CK-MB 4.89 ng/mL (0.0-5.0)
--- NOTE | 2019-11-18 09:58 | EKG Report ---
Test Performed on : 11/18/2019 09:58:48 AM Test Reason : increased repeat troponin Blood Pressure : / mmHG Vent. Rate : 082 BPM Atrial Rate : 082 BPM P-R Int : 158 ms QRS Dur : 082 ms QT Int : 396 ms P-R-T Axes : 046 -06 056 degrees QTc Int : 462 ms Normal sinus rhythm. Low voltage QRS Borderline ECG When compared with ECG of 18-NOV-2019 00:14, (Unconfirmed) No significant change was found Confirmed by Bandar JAMES, Trevor Christian ([id number]) on 11/19/2019 12:23:02 PM
--- NOTE | 2019-11-18 10:27 | ED EKG INTERP ---
This chart was entered by Tabitha Adams Scribe, acting as scribe for Quinton Patel MD. EKG Interpretation - EKG Time of EKG reading by physician:: 09:58 EKG Read and Signed by:: Quinton Patel EKG Interpretation (*Must complete 3 of following elements*): Normal (borderline) Rate: 82 Rhythm: nsr [place]: normal QRS: other (low voltage qrs) [place] Interval: normal ST Wave: normal Attestation - Physician/ JASS Attestation Patient care was provided by Advanced Practice Provider:: No The physician spent face to face time with patient:: Yes Advanced Practice Provider documentation review:: Supervising physician onsite and consulted in the evaluation and care of this patient. The physician did have a face to face encounter with the patient. This chart was documented by the indicated scribe, (Tabitha Adams Scribe) and accurately reflects the services I performed and decisions made by me, Quinton Patel MD, as attested by the provider's signature.
[2019-11-18] MEDS ORDERED: KAYEXALATE PO ONE (10:47)
[2019-11-18] MEDS ORDERED: DUONEB (A & A) INH PRN (10:50)
[2019-11-18] MEDS: HUMULIN R SUBQ SCH ×3 (11:00→21:16)
[2019-11-18] MEDS ORDERED: VANCOMYCIN 1,250 MG in NS 250 ML IV ONE (11:00)
[2019-11-18] MEDS: DUONEB (A & A) INH SCH ×4 (11:20→23:26)
[2019-11-18 11:56] LABS: HEMOGLOBIN A1C 7.4 % (4.8-6.0)
--- NOTE | 2019-11-18 16:29 | ECHO REPORT ---
ORDER DATE: 11/18/2019 Technically suboptimal study. Poor acoustic window. INTERPRETING PHYSICIAN: Manuel Flores MD. ECHOCARDIOGRAPHIC MEASUREMENTS: 1. Interventricular septum 0.9. 2. Left ventricular posterior wall 1.0. 3. Left ventricular diastolic diameter 4.8. 4. Systolic diameter 3.1 . 5. Aorta 2.5 cm. 6. Left atrium 3.9 cm. FINDINGS: 1. Aortic valve leaflets not well visualized. 2. Pulmonic valve not well visualized. 3. Mitral valve was normal. 4. Tricuspid valve was normal. 5. Normal left ventricular cavity size. Estimated ejection fraction of 65%. 6. There is mild mitral regurgitation. 7. Peak velocity across the aortic valve less than 2 m/sec by Doppler studies. There is no aortic stenosis or regurgitation. 8. There is mild tricuspid regurgitation. Peak velocity across the tricuspid valve less than 2 m/sec. 9. There is no pericardial effusion or obvious intracardiac mass or thrombus seen. cc: MD Rajiv Aleman MD
[2019-11-18] MEDS: LIPITOR PO SCH (21:14)
[2019-11-18] MEDS: COREG PO SCH (21:15)
[2019-11-18] MEDS: FERROUS SULFATE PO SCH (21:15)
[2019-11-18] MEDS: CELEXA PO SCH (21:15)
[2019-11-18] MEDS: NEURONTIN PO SCH (21:15)
[2019-11-18] MEDS: VITAMIN D PO SCH (21:15)
[2019-11-18] MEDS: SODIUM CHLORIDE 0.9% INJ SCH (21:16)
[2019-11-18] MEDS: LANTUS INSULIN SUBQ SCH (21:17)
[2019-11-19] MEDS: ZOSYN 2.25 GM in NS 50 ML IV SCH ×4 (03:35→21:19)
[2019-11-19] MEDS: DUONEB (A & A) INH SCH ×6 (03:40→23:52)
[2019-11-19] MEDS: HUMULIN R SUBQ SCH ×4 (06:20→21:07)
[2019-11-19 06:31] LABS: ALLEN TEST YES; BE -1.3 mmoll (-3.0-3.0); BLOOD TYPE ARTERIAL; HCO3-(ACT) 23.9 mmoll (20.0-26.0); O2(CT) 9.6 mL/dL (15.0-23.0); O2HB 93.1 % (95.0-99.0); PCO2(98.6) 40 mmHg (35-45); PO2(98.6) 62 mmHg (60-100); SAMPLE BLOOD; SAO2 94.5 % (95.0-100.0); THB 7.3 g/dL (11.5-17.4); pH(98.6) 7.38 (7.35-7.45)
[2019-11-19 06:33] LABS: MODALITY CANNULA
[2019-11-19 07:16] LABS: BASO# 0.01 X1000 (0.0-0.2); BASO% 0.1 % (0.0-0.8); EOS# 0.01 X1000 (0.0-0.7); EOS% 0.1 % (0.0-10.0); HEMATOCRIT 30.8 % (37.0-47.0); IMM GRAN# 0.02 X1000 (0.0-0.04); IMM GRAN% 0.1 % (0.0-0.5); LYMPH# 0.88 X1000 (1.2-3.4); LYMPH% 6.2 % (20.5-51.1); MCH 29.1 PG (27-31); MCHC 29.2 g/dL (33-37); MCV 99.7 FL (81-99); MONO# 0.79 X1000 (0.11-0.59); MONO% 5.6 % (1.7-9.3); MPV 9.9 FL (7.4-10.4); NEUT# 12.43 X1000 (1.4-6.5); NEUT% 87.9 % (42.2-75.2); PLT 225 X1000 (130-400); RBC 3.09 XMIL (4.2-5.4); RDW 14.9 % (11.5-14.5); WBC 14.14 X1000 (4.8-10.8)
[2019-11-19] MEDS ORDERED: SPIRIVA INH SCH (07:30)
[2019-11-19 07:39] LABS: ALBUMIN 3.3 g/dL (3.5-5.0); CALCIUM 9.4 mg/dL (8.8-10.2); CREATININE 2.1 mg/dL (0.5-0.9); POTASSIUM 5.2 mmol/L (3.5-5.1)
[2019-11-19 07:48] LABS: LYMPHS 4 % (21-51); MONO 2 % (1-9); SEGS 94 % (42-75)
[2019-11-19] MEDS: COREG PO SCH ×2 (08:44→21:19)
[2019-11-19] MEDS: HYGROTON PO SCH (08:44)
[2019-11-19] MEDS: FERROUS SULFATE PO SCH ×2 (08:44→21:19)
[2019-11-19] MEDS: SYNTHROID PO SCH (08:44)
[2019-11-19] MEDS: ISORDIL PO SCH ×3 (08:44→16:10)
[2019-11-19] MEDS: DITROPAN PO SCH (08:45)
[2019-11-19] MEDS: SODIUM CHLORIDE 0.9% INJ SCH (08:45)
[2019-11-19] MEDS: NEURONTIN PO SCH ×2 (08:45→21:19)
[2019-11-19] MEDS: PROTONIX IV SCH ×2 (08:45→21:19)
[2019-11-19] MEDS: PATIENT'S OWN MED PO SCH (08:49)
[2019-11-19] MEDS: SPIRIVA INH SCH (09:04)
--- NOTE | 2019-11-19 10:23 | CARDIOLOGY CONSULTATION ---
DATE: 11/19/2019 The patient is admitted with pneumonia. Cardiology was consulted for elevated troponin. 62-year- old, lady with history of COPD, diabetes, hypertension came with increasing shortness of breath while she was sitting at home watching TV. She also had noticed some cough and a couple of days back she had nausea and vomiting. She came to the emergency room. Her chest x-ray was abnormal. She underwent a CT scan of her thorax which revealed severe bilateral multilobar pneumonia right greater than left. Hiatal hernia and gastroesophageal reflux disease was noted. From a cardiac standpoint her chest pains are not anginal. She recently underwent a stress testing in 2019 which revealed no evidence of ischemia. REVIEW OF SYSTEM: GI System: As above. Respiratory System: As above. Cardiovascular System: There are no palpitations. There is no syncope. Genitourinary System: There is no dysuria or hematuria. PAST MEDICAL HISTORY: 1. Hypertension. 2. COPD. 3. Diabetes. 4. Arthritis. 5. Gastroesophageal reflux disease. 6. Hiatal hernia. HOME MEDICATIONS: 1. Isosorbide dinitrate 20 t.i.d. 2. Hydralazine 25 t.i.d. 3. Torsemide 20 b.i.d. 4. Mag-Ox. 5. Loratadine. 6. Insulin as directed next. 7. Aspirin 81 mg a day. 8. Coreg 12.5 mg b.i.d. 9. Atorvastatin 80. ALLERGIES: She is allergic to lisinopril, contrast, sulfonamides, allopurinol. SOCIAL HISTORY: There is no history of alcohol abuse. She does not smoke. PAST SURGICAL HISTORY: Other surgeries include cholecystectomy, cataract surgery. PHYSICAL EXAMINATION: Vital Signs: Blood pressure was 143/74. First and second heart sounds were heard. There was no S3 gallop. Respiratory System: Examination revealed bilateral coarse breath sounds, wheeze. Abdomen: Was soft, obese, nontender. There was no guarding or rigidity. Bowel sounds were heard. Central nervous system: Alert and was moving all 4 extremities. Detailed central nervous system examination not performed. LABORATORY EXAMINATION: Troponin T high sensitivity was abnormal at 252, 213 and 285. Sodium 140, potassium 5.2, BUN 50, creatinine 2.1. The troponin abnormality was chronic. WBC 14.4, RBC 3, hemoglobin 9, hematocrit 90, platelet count of 225,000. Urine examination unremarkable. ASSESSMENT AND PLAN: Ms. Susan Roldan is a 64-year-old lady who has history of hypertension, diabetes, and COPD is admitted and has multilobar pneumonia. She has gastroesophageal reflux disease as well as hiatal hernia. She has been started on antibiotics. 1. From a cardiac standpoint, the troponin is secondary to multiple issues in addition to pneumonia, renal insufficiency. She had cardiac workup with recent stress test which was unremarkable. Would recommend continuing her home medications of aspirin and beta blockers for hypertension. 2. Hyperlipidemia. Continue with atorvastatin. 3. Diabetes. Continue with medications as planned. 4. She has multilobar pneumonia. Of concern is that she had nausea and vomiting and had significant GERD. I am not sure whether she has aspirated as well which resulted in multilobar pneumonia. Would recommend GI workup. From a cardiac standpoint, we will manage her medically. Thank you for the consult. We will follow hospital course. cc: Manuel Flores MD
--- NOTE | 2019-11-19 11:17 | HISTORY AND PHYSICAL ---
PRIMARY CARE PROVIDER: [facility] in [place]. DATE AND TIME: 11/18/2019 at 0800. CHIEF COMPLAINT: Shortness of breath. HISTORY OF PRESENT ILLNESS: Ms. Roldan is a 64-year-old female with a history of hypertension, diabetes mellitus type 2, congestive heart failure, chronic obstructive pulmonary disease, and chronic kidney disease. She presented to the emergency department with complaints of shortness of breath just prior to midnight on November 17. She states earlier in the evening on November 17, she did begin to have nausea and vomiting. The patient states she had several episodes of coffee-ground emesis. She denies any melena. She does report she has some problems with chronic constipation with her last bowel movement being a small bowel movement that she had earlier in the day that day. The patient states that shortly after her nausea and vomiting episodes, at around approximately supper time that evening, she did begin to have a sudden onset of shortness of breath and a cough. The patient does state that she has had recurrent problems with aspiration pneumonia. She does have a reported large hiatal hernia. She did report that she did undergo swallowing studies, which included a barium swallowing study at the [facility] in [place] 1 week ago, though she could not tell me the exact results of this test. She did say that they told her to eat small bites with a small amount of liquid when she eats. The patient is denying any abdominal pain. She is denying any chest pain either. She does report some chronic swelling in her feet. At this time, she does have approximately 1+ pitting edema in bilateral lower extremities. She also reports that she does have some orthopnea and paroxysmal nocturnal dyspnea. She also reports that she has history of chronic kidney disease and has had problems with chronic hyperkalemia for many years, though she denies any dysuria or urinary frequency or decrease in the normal amount of her urinary output. She was unsure if she had been running a fever, stating that she does not have a thermometer at home, but she did have body aches and chills. Upon evaluation in the ER, she was noted to have some leukocytosis with white blood cell count of 15,650. Arterial blood gases showed pH 7.23, pCO2 of 50, PO2 of 144, HC03 of 19.7. This was on a nonrebreather when she first arrived to the ER. She did have elevated potassium of 5.9 with BUN of 46 and creatinine of 2.2, though this creatinine does appear to be at her baseline. Her proBNP is 1234. Her first troponin high sensitivity was 48, though upon repeat this morning, it did have quite a significant increase to 278. The patient at this time is denying any chest pain. She has denied it prior to arrival and has been denying it since she arrived. Her EKG showed sinus tachycardia at a rate of 110 with a QTc of 433. We did do a repeat EKG since her troponin had increased and there were no acute changes noted. It did show normal sinus rhythm as well with a rate of 82. In the ER, the chest x-ray showed multilobar bilateral pneumonia. They did do a chest CT without contrast which did show severe multilobar bilateral pneumonia, the right greater than the left, and a hiatal hernia as well as GERD. Though the patient's respiratory status has improved, we would still would like to place her in PVC unit for close monitoring. She will be placed inpatient for admission. REVIEW OF SYSTEMS: A 14-point review of systems was conducted with the patient and all were negative except for pertinent positives mentioned in above HPI. PAST MEDICAL HISTORY: 1. Hypertension. 2. Diabetes mellitus type 2. 3. Congestive heart failure. 4. Hyperlipidemia. 5. Chronic obstructive pulmonary disease. 6. Hypothyroidism. 7. Chronic kidney disease. 8. Depression. 9. History of hiatal hernia. 10. Chronic hyperkalemia related to her chronic kidney disease. 11. Gastroesophageal reflux disease. 12. Iron-deficiency anemia. PAST SURGICAL HISTORY: 1. Cholecystectomy. 2. Cataract surgery. 3. Ganglion cyst removal. 4. Arthroscopy. 5. Hysterectomy. SOCIAL HISTORY: The patient has no known history of tobacco, alcohol or illicit drug use. FAMILY HISTORY: Positive for coronary artery disease in her father. ALLERGIES: Patient reports allergies to allopurinol, lisinopril, iodinated contrast media, and sulfa. HOME MEDICATIONS: 1. Albuterol sulfate inhaler 2 puffs inhaled q.6 hours p.r.n. 2. Alogliptin 6.25 mg p.o. daily. 3. Aspirin 81 mg p.o. daily. 4. Lipitor 80 mg p.o. at bedtime. 5. Coreg 12.5 mg p.o. b.i.d. 6. Chlorthalidone 25 mg p.o. daily. 7. Vitamin D 3000 units p.o. at bedtime. 8. Celexa 40 mg p.o. daily. 9. Ferrous sulfate 324 mg p.o. b.i.d. 10. Gabapentin 300 mg p.o. b.i.d. 11. NovoLog FlexPen 4 units subcu t.i.d. 12. Lantus 45 units subcu at bedtime. 13. Isordil 20 mg p.o. t.i.d. 14. Synthroid 88 mcg p.o. daily. 15. Loratadine 10 mg p.o. at bedtime. 16. Magnesium oxide 400 mg p.o. at bedtime. 17. Omeprazole 20 mg p.o. daily. 18. Zofran 8 mg p.o. b.i.d. p.r.n. for nausea. 19. Oxybutynin 5 mg p.o. daily. 20. Spiriva 18 mcg inhaled daily. DIAGNOSTIC DATA/LABORATORY RESULTS: White blood cell count is 15,650, hemoglobin 11.1, hematocrit is 36.7, platelet count is 245,000. PT 13.8, INR 1.05, PTT is 25.1. Sodium 141, potassium 5.9, chloride 110, serum bicarbonate is 19, BUN 46, creatinine 2.2 with GFR of 23, glucose 177, calcium 9.2. Liver function tests within normal limits. CK 193, troponin 48. ProBNP is 1234. Urinalysis was obtained via clean catch, was positive for protein and glucose, was otherwise negative for blood, nitrites, leukocytes, white blood cells, or bacteria. EKG initially when she arrived did show sinus tachycardia at a rate of 110. Repeat later on in the morning since she has begun to have increased troponins, showed normal sinus rhythm at a rate of 82. There did not appear to be any acute changes noted. This was reviewed by the ER physician as well. Chest x-ray did show multilobar bilateral pneumonia. CT chest noncontrast showed severe bilateral multilobar pneumonia, right greater than the left, hiatal hernia and gastroesophageal reflux disease. PHYSICAL EXAMINATION: VITAL SIGNS: Temperature 98.9 degrees, heart rate 79, respirations 22, blood pressure is 166/90, oxygen saturation is 96% per nasal cannula at 2 L. GENERAL: Ms. Roldan is a very pleasant 64-year-old obese female. She was resting in the ER stretcher. She was in no acute distress. She was awake, alert, and able to answer questions appropriately. HEENT: Head is atraumatic, normocephalic. Pupils are equal, round, reactive to light, were 3 mm bilaterally and brisk. The patient is legally blind in both eyes. She does report she had retinopathy due to her diabetes mellitus. Oral mucosa is moist. Oropharynx is clear. NECK: Supple. Trachea midline. CARDIOVASCULAR: Patient has S1-S2 present. No murmurs, gallops, rubs appreciated with a regular rate and rhythm. PULMONARY: Patient has symmetrical chest expansion bilaterally, though she does have crackles noted to bilateral full harrington. ABDOMEN: Soft and does not appear to be distended. The patient does have a protuberant abdomen noted. She was nontender upon palpation. Bowel sounds were present in all 4 quadrants and were normoactive. EXTREMITIES: No cyanosis noted. The patient does have 1+ pitting edema noted in bilateral lower extremities. The patient states that she does have chronic swelling in her bilateral lower extremities. Pulse, motor and sensory is intact in all extremities. Radial and pedal pulses were 2+ bilaterally. INTEGUMENTARY: The patient's skin is warm and dry. NEUROLOGICAL: Patient is alert and oriented to person, place, time, situation. She is able to move all extremities. There are no focal neurological deficits noted. ASSESSMENT AND PLAN: 1. Bilateral multilobar pneumonia. The patient does have a history of having aspiration pneumonia as well. We have ordered for her to receive antibiotics of vancomycin and Zosyn. We will continue with supplemental oxygen at this time. The patient does not normally wear oxygen at home. We will repeat ABG this morning as well. Given her history of hiatal hernia and recurrent aspiration pneumonia, we have ordered for her speech evaluation here as well. We will do aggressive pulmonary toilet with incentive spirometry and scheduled DuoNeb treatments. We will continue to monitor her respiratory status closely. She will be placed on the PVC unit for close monitoring. 2. Acute hypoxic respiratory failure. This is likely secondary to her pneumonia. We will continue with treatment as mentioned above in #1. 3. Chronic obstructive pulmonary disease. The patient has been given Solu- Medrol IV in the ER upon arrival. We will continue with treatment as mentioned above for #1 as well. 4. History of congestive heart failure. The patient is reporting some orthopnea and paroxysmal nocturnal dyspnea and does have some swelling in bilateral lower extremities, though some this may be chronic as well. She does report that she takes diuretic of chlorthalidone. At this time, I am not sure if her respiratory symptoms are driven by possible heart failure exacerbation. We will perform an echocardiogram as well. More concerning is her elevated troponins, though fortunately at this time, the patient is not reporting any chest pain and has not reported any chest pain prior to arrival. Initial EKG and repeat EKG did not show any acute changes. We will continue to trend these. We will place a consult with Cardiology, and will await their evaluation and further recommendations for management. 5. Chronic kidney disease. The creatinine at this time is 2.2. This does appear to be at her baseline. She does have chronic hyperkalemia related to this. They did treat her with Veltassa and sodium bicarbonate in the ER last night upon her arrival. This morning, potassium was still elevated some and we have added on a Kayexalate as well. We will continue to monitor her electrolytes closely including her potassium. We will avoid nephrotoxic medications and renally dose medicines as necessary. 6. Possible upper GI bleed. The patient did report several episodes of nausea and vomiting with coffee-ground emesis prior to her shortness of breath starting. We have ordered Hemoccult stool, though she has denied any melena. She denies any abdominal pain either. The patient does have a history of hiatal hernia and GERD. We will place her on Protonix 40 mg IV q.12 hours. We will continue to monitor this closely. 7. Diabetes mellitus. We will place her on a sliding scale insulin. We will do pattern fingerstick blood sugars. The patient has been placed on PVC unit for close monitoring. She will have vital signs per PVC protocol. We will perform aspiration precautions. She will be on strict bed rest at this time given that when she is getting up at present she does become very dyspneic. She will be on a diabetic diet. Further orders and recommendations pending hospital course, diagnostic studies, and physician evaluation. Dictated by GRZEGORZ Miller for Mak Puga MD cc: Mak Puga MD [facility]
--- NOTE | 2019-11-19 13:02 | PROGRESS NOTE ---
DATE: 11/19/2019 SUBJECTIVE: Patient reports feeling fine. Apparently no more episodes of coffee-ground emesis. The patient is legally blind and not able to see what kind of color he was vomiting. She is not complaining of any abdominal pain. Shortness of breath is definitely getting better. OBJECTIVE: Vital Signs: Temperature 98.9 degrees, heart rate 74, respiratory rate 18, blood pressure 128/54, O2 saturation 99% on 2 L nasal cannula. General: This is a pleasant 64-year-old obese, female, lying in bed, in no acute distress. HEENT: Head is normocephalic, atraumatic. The patient is legally blind in both eyes. Neck: No JVD noted. No carotid bruits. No lymphadenopathy. Cardiovascular: S1, S2 heard. No murmurs, gallops, or rubs. Regular rate and rhythm. Respiratory: Clear bilaterally to auscultation with some crackles in both pulmonary bases. Patient is not using any accessory muscles or having work of breathing. Abdomen: Soft, nondistended. Mild epigastric pain to palpation. No organomegaly noted. No signs of peritoneal irritation. Extremities: No clubbing or cyanosis, but there is 1+ pedal edema in both lower extremities. Peripheral pulses present. Neurological: Patient is alert and oriented x3. Moves 4 extremities. LABORATORY DATA: White cell count 14.1, hemoglobin 9.0, hematocrit 30.8, platelets 225,000 with ABG that shows pH 7.38 with pCO2 40, PO2 62 with creatinine 2.1 and potassium 5.2. Troponin has been repeated but from normal, started getting higher, 278, 252, 213 and 285. ASSESSMENT AND PLAN: 1. Bilateral multilobar pneumonia. The patient is on broad spectrum antibiotics, in this case vancomycin and Zosyn. I think because of renal dysfunction already, I prefer to switch this vancomycin to ceftaroline, that is going to be 400 mg IV q.12 hours and we will continue with Zosyn, both renally dosed. We will continue with breathing treatments as well. 2. Acute respiratory failure. Definitely secondary to condition #1. We will continue with oxygen supplementation. 3. Chronic obstructive pulmonary disease exacerbation treated but there is pneumonia. We will continue with breathing treatments every 4 hours. 4. Gastrointestinal bleeding. Patient reports coffee-ground emesis and hemoglobin has dropped here in the hospital from 11.1 on admission to 9.0 this morning. We have called GI and we will see what they have to say. 5. History of congestive heart failure. The patient has been complaining of some orthopnea and paroxysmal nocturnal dyspnea. EKG did not show any ST-segment changes but troponin has been really high from normal. We would rather prefer to consult Cardiology and see what they have to say. 6. Chronic kidney disease stage III. Creatinine is 2.2, apparently that is her baseline. We have seen hyperkalemia, today the potassium is 5.2. I think we will provide 1 more dose of Kayexalate and we will check BMP tomorrow. 7. Diabetes mellitus type 2. We will continue with sliding scale insulin and Accu-Chek before meals and also at bedtime. 8. Disposition. We will continue to monitor this patient closely here in [facility]. cc: Rajiv Mullen MD MTDD
[2019-11-19] MEDS: TEFLARO 400 MG in NS 250 ML IV SCH (15:35)
[2019-11-19] MEDS: LIPITOR PO SCH (21:19)
[2019-11-19] MEDS: LANTUS INSULIN SUBQ SCH (21:19)
[2019-11-19] MEDS: CELEXA PO SCH (21:19)
[2019-11-19] MEDS: VITAMIN D PO SCH (21:19)
[2019-11-20] MEDS: TEFLARO 400 MG in NS 250 ML IV SCH ×2 (00:21→12:00)
[2019-11-20] MEDS: DUONEB (A & A) INH SCH ×6 (03:23→23:51)
[2019-11-20] MEDS: ZOSYN 2.25 GM in NS 50 ML IV SCH ×4 (03:25→21:34)
[2019-11-20 06:05] LABS: BASO# 0.03 X1000 (0.0-0.2); BASO% 0.3 % (0.0-0.8); EOS# 0.13 X1000 (0.0-0.7); EOS% 1.2 % (0.0-10.0); HEMATOCRIT 27.1 % (37.0-47.0); HEMOGLOBIN 7.9 g/dL (12.0-16.0); LYMPH# 1.09 X1000 (1.2-3.4); LYMPH% 9.9 % (20.5-51.1); MCH 29.5 PG (27-31); MCHC 29.2 g/dL (33-37); MCV 101.1 FL (81-99); MONO# 0.85 X1000 (0.11-0.59); MONO% 7.7 % (1.7-9.3); MPV 9.6 FL (7.4-10.4); NEUT# 8.89 X1000 (1.4-6.5); NEUT% 80.9 % (42.2-75.2); PLT 178 X1000 (130-400); RBC 2.68 XMIL (4.2-5.4); RDW 15.2 % (11.5-14.5); WBC 10.99 X1000 (4.8-10.8)
[2019-11-20] MEDS: HUMULIN R SUBQ SCH ×4 (06:18→21:36)
[2019-11-20 06:38] LABS: CALCIUM 8.8 mg/dL (8.8-10.2); CREATININE 2.1 mg/dL (0.5-0.9); PHOSPHORUS 2.9 mg/dL (2.7-4.5); POTASSIUM 4.3 mmol/L (3.5-5.1)
[2019-11-20] MEDS: NEURONTIN PO SCH ×2 (08:17→21:34)
[2019-11-20] MEDS: FERROUS SULFATE PO SCH ×2 (08:17→21:36)
[2019-11-20] MEDS: PROTONIX IV SCH ×2 (08:18→21:35)
[2019-11-20] MEDS: COREG PO SCH ×2 (08:18→21:35)
[2019-11-20] MEDS: DITROPAN PO SCH (08:18)
[2019-11-20] MEDS: SYNTHROID PO SCH (08:18)
[2019-11-20] MEDS: CELEXA PO SCH (08:18)
[2019-11-20] MEDS: HYGROTON PO SCH (08:18)
[2019-11-20] MEDS: ISORDIL PO SCH ×3 (08:18→16:55)
[2019-11-20] MEDS: PATIENT'S OWN MED PO SCH (08:19)
[2019-11-20] MEDS: SPIRIVA INH SCH (08:38)
--- NOTE | 2019-11-20 09:44 | PROGRESS NOTE ---
DATE: 11/19/2019 SUBJECTIVE: The patient reports feeling fine. No short of breath. According to nursing staff, there has been no more episodes of coffee-grounds emesis noted. Patient is not complaining of any abdominal pain. No nausea or vomiting. OBJECTIVE: Vitals: Temperature 98.8 degrees, heart rate 79, respiratory rate 18, blood pressure 147/60, O2 saturation 97% on 2 L nasal cannula. GENERAL: This is a morbidly obese and chronically ill appearing, 64-year-old female lying in bed, in no acute distress.Cardiovascular: S1, S2 heard. No murmurs, gallops, or rubs. Regular rate and rhythm. Respiratory: Clear bilaterally to auscultation. Minimal crackles noted in both pulmonary bases. Patient not using any accessory muscles or having work of breathing. Abdomen: Soft. Nondistended. Mild epigastric pain to palpation but no organomegaly noted. No signs of peritoneal irritation. Extremities: No clubbing or cyanosis. There is 1+ pedal edema in both lower extremities. Peripheral pulses present. Neurological: The patient is alert and oriented x3. Moves 4 extremities. LABORATORY DATA: White cell count is 10.99, hemoglobin 7.9, hematocrit 27.7, platelets 178,000. BMP is still pending. ASSESSMENT AND PLAN: 1. Bilateral multilobar pneumonia. We will continue with the Teflaro and Zosyn. Today is #2 of Teflaro and 3 of Zosyn. We will continue with same management. Patient white cell count is much better and no fever reported. We will continue with the same medications. 2. Acute hypoxemic respiratory failure secondary to condition 1. We will continue with oxygen supplementation and breathing treatments. 3. Chronic obstructive pulmonary disease exacerbation secondary to pneumonia. We will continue current management as mentioned above. 4. Gastrointestinal bleeding. As we mentioned before, patient reports coffee- grounds emesis at admission. Even though there was no more episodes of those hemoglobin continues to drop. Gastroenterology is on board. We will see what they have to say. 5. History of congestive heart failure. Troponin has been elevated. I think it is most likely secondary to mismatch supply and demand. Cardiology following this patient. Recommend continued medical management. 6. Chronic kidney disease stage 3. I do not have the results of the BMP today. 7. Hyperkalemia awaiting results of BMP. 8. Diabetes mellitus type 2. We will continue with Accu-Chek before meals and also at bedtime. DISPOSITION: We will continue to monitor this patient closely in [facility]. cc: Rajiv Mullen MD MTDMatt
[2019-11-20] MEDS ORDERED: VANCOMYCIN 2 GM in NS 500 ML IV SCH (11:00)
--- NOTE | 2019-11-20 20:30 | GASTROENTEROLOGY CONSULTATION ---
DATE: 11/20/2019 REASON FOR CONSULT: GI bleed. HISTORY OF PRESENT ILLNESS: Ms. Roldan is a 64-year-old, female, who is legally blind. She has a history of diabetes, hypertension, congestive heart failure, COPD, asthma, chronic kidney disease. She presented to the hospital on 11/18/2019. The patient mentioned that on Saturday night, she started throwing up and it was noticed that her emesis was coffee ground, and she also mentioned that yesterday, the nursing staff noticed that her stools were dark and tarry. The patient complained that she was really tired, had shortness of breath and chills, but she has denied any abdominal pain. The patient mentioned having an EGD done 6 to 8 weeks back at the [facility] in [place], and she said that they found out that she had hiatal hernia and esophageal dilation was done. After that, she had a barium swallow evaluation and she failed it. The patient is waiting for the [facility] to set up an appointment for her for esophageal manometry. The patient does take aspirin 81 mg on a daily basis. She also mentioned having edema edema in the lower extremities, but currently it is improving. She has a history of chronic kidney disease, but she has denied having any urinary problems. PAST MEDICAL HISTORY: Hypertension, diabetes type 2, congestive heart failure, hyperlipidemia, COPD, hypothyroidism, chronic kidney disease, depression, hiatal hernia, gastroparesis, peripheral neuropathy, and anemia. ALLERGIES: The patient is allergic to sulfa, allopurinol, lisinopril, and IV contrast dye. PAST SURGICAL HISTORY: Gallbladder surgery, left eye surgery, cataract surgery, ganglion cyst removed from the right wrist, and hysterectomy. SOCIAL HISTORY: The patient is , has 2 kids. She has denied smoking tobacco, alcohol, or illicit drugs. FAMILY HISTORY: Her mom had uterine cancer and lung cancer, and dad had heart disease. HOME MEDICATIONS: Aspirin 81 mg, atorvastatin 80 mg p.o. at bedtime, carvedilol 12.5 mg p.o. twice a day, vitamin D3, 1000 units p.o. at bedtime, ferrous sulfate 325 mg p.o. twice a day, Neurontin 300 mg twice a day, NovoLog FlexPen 4 units subcu 3 times a day, Lantus SoloStar 45 units subcu at bedtime, Synthroid 88 mcg daily, loratadine 10 mg p.o. at bedtime, magnesium oxide 400 mg at bedtime, Zofran 8 mg p.o. twice a day as needed, oxybutynin chloride 5 mg p.o. daily, albuterol sulfate 2 puffs inhaler every 6 hours as needed, alogliptin 6.2 mg p.o. daily, Celexa 40 mg p.o. daily, Spiriva 18 mcg inhaler daily, Tylenol Arthritis 1300 mg p.o. twice a day, Isordil 20 mg p.o. 3 times a day, chlorthalidone 25 mg p.o. daily, omeprazole 20 mg p.o. daily. REVIEW OF SYSTEMS: As per HPI. Otherwise, 12-point review of systems is negative. PHYSICAL EXAMINATION: Vital Signs: Temperature 97.9 degrees, pulse 78, respirations 16, blood pressure 170/64, oxygen saturation 94% on room air. The patient's weight is 113, BMI is 50.6 kg/m2. General: She is alert, oriented x3, and in no acute distress. Legally blind. Answering questions appropriately. HEENT: Legally blind. Pale conjunctivae. No icterus. PERRL. Neck: Supple. Lungs: Mild crackles heard in the upper anterior lobes. Cardiovascular: Regular rate and rhythm. Abdomen: Obese, soft, nontender. Hypoactive bowel sounds heard in all 4 quadrants. Extremities: No clubbing, no cyanosis. Pitting edema 1+ bilaterally. Pedal pulses 1+ present. Neurologic: Alert, oriented x3. Nonfocal. Cranial nerves 2-12 grossly intact. LABORATORY AND DIAGNOSTIC DATA: WBC is 10.99, RBC is 2.68, hemoglobin is 7.9, hematocrit is 27.1, platelet count is 178,000. Sodium 141, potassium 4.3, chloride 107, carbon dioxide 22, anion gap is 12, BUN 45, creatinine 2.3, glucose 62, calcium 89, phosphorus 2.9. Her chest x-ray on 11/18/2018, showed multifocal bilateral pneumonia. Chest CT has shown severe bilateral multifocal pneumonia, right greater than left; hiatal hernia, gastroesophageal reflux. Echocardiogram has shown ejection fraction of 65%. IMPRESSION AND PLAN 1. Gastrointestinal bleed. 2. Anemia. 3. Hiatal hernia. 4. Dysphagia, s/p esophageal dilation. 5. Chronic kidney disease. 6. Congestive heart failure. 7. Diabetes type 2. 8. Hypertension. 9. COPD. PLAN: Ms. Roldan is a 64-year-old, female, with a history of COPD, congestive heart failure, hypertension, diabetes, and chronic kidney disease. Gastroenterology has been consulted for GI bleed and anemia. The patient's hemoglobin today is 7.9 and hematocrit is 27.1. The patient recently had an EGD done at the [facility] at [place] and had hiatal hernia, esophageal dilation. She is supposed to have an appointment set up for esophageal manometry. We will currently hold off on doing any procedures for now. The patient is on Protonix IV twice a day. She is on iron tablet 325 mg twice a day. The patient is on antibiotic Teflaro and Zosyn. We will continue to monitor patient's hemoglobin and hematocrit with the goal of 7 to 8 and if the hemoglobin drops below 7, we will transfuse her with packed red blood cells per protocol. We will continue to monitor the patient and follow the plan of care per PCP. This plan has been discussed with Dr. Hamm. Thank you for your consult and please call us for any further questions or concerns. Dictated by GRZEGORZ Cottrell for Rambo Hamm MD [facility]
[2019-11-20] MEDS: LANTUS INSULIN SUBQ SCH (21:33)
[2019-11-20] MEDS: LIPITOR PO SCH (21:35)
[2019-11-20] MEDS: VITAMIN D PO SCH (21:35)
[2019-11-21] MEDS: DUONEB (A & A) INH SCH ×6 (03:24→22:50)
[2019-11-21] MEDS: ZOSYN 2.25 GM in NS 50 ML IV SCH ×4 (04:40→21:25)
[2019-11-21 05:35] LABS: BASO# 0.02 X1000 (0.0-0.2); BASO% 0.3 % (0.0-0.8); EOS# 0.18 X1000 (0.0-0.7); EOS% 2.9 % (0.0-10.0); HEMATOCRIT 26.6 % (37.0-47.0); HEMOGLOBIN 7.8 g/dL (12.0-16.0); LYMPH# 1.05 X1000 (1.2-3.4); LYMPH% 16.6 % (20.5-51.1); MCH 29.4 PG (27-31); MCHC 29.3 g/dL (33-37); MCV 100.4 FL (81-99); MONO# 0.52 X1000 (0.11-0.59); MONO% 8.2 % (1.7-9.3); MPV 9.9 FL (7.4-10.4); NEUT# 4.54 X1000 (1.4-6.5); PLT 188 X1000 (130-400); RBC 2.65 XMIL (4.2-5.4); RDW 14.4 % (11.5-14.5); WBC 6.31 X1000 (4.8-10.8)
[2019-11-21 05:46] LABS: ALBUMIN 3.2 g/dL (3.5-5.0); CALCIUM 9.1 mg/dL (8.8-10.2); CREATININE 2.2 mg/dL (0.5-0.9); PHOSPHORUS 3.6 mg/dL (2.7-4.5); POTASSIUM 4.5 mmol/L (3.5-5.1)
[2019-11-21] MEDS: HUMULIN R SUBQ SCH ×4 (07:38→21:26)
[2019-11-21] MEDS: SPIRIVA INH SCH (07:49)
[2019-11-21] MEDS: SYNTHROID PO SCH (08:20)
[2019-11-21] MEDS: HYGROTON PO SCH (08:20)
[2019-11-21] MEDS: CELEXA PO SCH (08:20)
[2019-11-21] MEDS: COREG PO SCH ×2 (08:20→21:43)
[2019-11-21] MEDS: FERROUS SULFATE PO SCH ×2 (08:20→21:43)
[2019-11-21] MEDS: PROTONIX IV SCH ×2 (08:20→21:42)
[2019-11-21] MEDS: NEURONTIN PO SCH ×2 (08:20→21:42)
[2019-11-21] MEDS: ISORDIL PO SCH ×3 (08:20→16:03)
[2019-11-21] MEDS: DITROPAN PO SCH (08:20)
[2019-11-21] MEDS: PATIENT'S OWN MED PO SCH (08:21)
[2019-11-21] MEDS: TEFLARO 400 MG in NS 250 ML IV SCH ×2 (10:28→21:43)
--- NOTE | 2019-11-21 13:04 | PROGRESS NOTE ---
DATE: 11/21/2019 SUBJECTIVE: Patient reports feeling fine. No shortness of breath. No chest pain. No coffee- ground emesis noted. OBJECTIVE: Vital Signs: Temperature 97.8 degrees, heart rate 72, respiratory rate 18, blood pressure 117/94, O2 saturation 100% on 2 L nasal cannula . General Examination: This is a morbidly obese, chronically ill-appearing, legally blind, 64-year-old, female lying in bed, in no acute distress. Cardiovascular: S1, S2 heard. No murmurs, gallops, or rubs. Regular rate and rhythm. Respiratory Exam: Minimal crackles noted in both pulmonary bases as well as wheezing. Patient not using any accessory muscles or having work of breathing. Abdomen: Soft, nontender to palpation, just mild discomfort in the epigastric area. No organomegaly noted. No signs of peritoneal irritation. Extremities: No clubbing or cyanosis. There is 1+ pedal edema. Neurological: Patient alert and oriented x3. Moves 4 extremities. LABORATORY DATA: Pending at the time of my dictation. ASSESSMENT AND PLAN: 1. Bilateral multilobar pneumonia. We will continue with the Flagyl and Zosyn, day #3 for the Flagyl and on day #4 for Zosyn. Clinically the patient is more stable. I have not seen any results of white cell count yet, but she is not spiking any fever. We will continue with the same management. 2. Acute respiratory failure secondary to condition #1. She continues to require 2 to 3 L nasal cannula. We will continue to monitor. 3. Chronic obstructive pulmonary disease exacerbation secondary to pneumonia. We will continue with current antibiotic management as mentioned above. 4. GI bleeding. We do not have the results of the hemoglobin today, but we will continue to monitor. In case that continues to drop we will talk with GI. 5. History of congestive heart failure. Aware. The patient had positive troponins, most likely related to mix-match demand/supply. At this point we will continue to monitor. 6. Chronic kidney disease stage 3. 7. Diabetes mellitus type 2. We will continue with sliding scale insulin and Accu-Chek before meals and also at bedtime. cc: Rajiv Mullen MD
--- NOTE | 2019-11-21 18:57 | GASTROENTEROLOGY PROGRESS NOTE ---
DATE: 11/21/2019 ATTENDING PHYSICIAN: Dr. Berry. SUBJECTIVE: Patient resting in bed. Her family is at bedside. The patient denies any nausea, vomiting, vomiting blood or passing blood in the stools. OBJECTIVE: Temperature 97.7 degrees, pulse of 73, respiratory rate 18, blood pressure 158/81, saturating 100% on room air. Body weight of 249 pounds 3.2 ounces. BMI 50.3 kg. General appearance: The patient is morbidly obese, lying in bed in no acute distress. HEENT: Pale conjunctivae. No icterus. Pupils equal and reactive to light. Neck is supple. Abdomen is obese soft, nontender, nondistended. No guarding. No rebound. Extremities: No cyanosis or clubbing. Neurologic-shelton: Alert, awake, oriented x3. LABORATORY DATA: Hemoglobin and hematocrit is 7.8 and 26.6, white count of 6.31, platelet count of 188,000. MCV 100.4. Sodium 142, potassium 4.5, chloride 100, bicarbonate 25, anion gap 9, BUN of 43, creatinine of 2.2, glucose of 92, calcium is 9.1, phosphorus 3.6, and albumin of 3.2. Her troponin were high on admission. Her liver enzymes were normal on admission. Her blood culture was negative after 48 hours. Stool for occult blood was negative, and influenza screen was negative for both A and B. DIAGNOSTIC DATA: Chest CT was done on admission which showed severe bilateral multilobar pneumonia, right greater than left; significant hiatal hernia; cholecystectomy clips; fluid in the esophagus; gastroesophageal reflux. IMPRESSION AND PLAN: 1. Bilateral multilobar pneumonia, currently continuing antibiotics per the primary team. 2. Acute respiratory failure secondary to pneumonia. It is improving. 3. Chronic obstructive pulmonary disease exacerbation secondary to pneumonia. She is on antibiotics per the primary team. 4. Anemia. Continue to watch for now and transfuse as needed. We will start on iron-C b.i.d. and MVI once daily. 5. The patient had recent esophagogastroduodenoscopy done 8 weeks ago at [facility] in [place], where she had esophageal dilation. 6. Evidence of reflux disease. The patient will need to follow gastroesophageal reflux life changes. Continuing on proton pump inhibitors b.i.d. for now. 7. Significant hiatal hernia as seen on imaging. She will continue to be on aspiration precautions and elevate the head of bed to 45 degrees when lying down. 8. History of congestive heart failure. Aware. The patient has elevated troponins, being monitored by the primary care team. 9. Chronic kidney disease stage 3. 10. Type 2 diabetes. Being managed with sliding scale insulin. 11. Anemia. She will continue iron sulfate b.i.d. 12. Morbid obesity. Patient counseled to lose weight. 13. The patient was supposed to be scheduled as an outpatient with [facility] for outpatient colonoscopy. She will call the [facility] on discharge to schedule for outpatient colonoscopy. No plans of inpatient endoscopy at the moment, unless there are any acute changes in hematocrit or any new symptoms. The above plans were discussed with the patient and family at bedside. All questions answered. We will sign off at this time. We will be available for any questions if needed. Please call us with any further questions or concerns. cc: MD Rajiv Rojas MD MTDD
[2019-11-21] MEDS: VITAMIN D PO SCH (21:42)
[2019-11-21] MEDS: LIPITOR PO SCH (21:42)
[2019-11-21] MEDS: LANTUS INSULIN SUBQ SCH (21:43)
[2019-11-22] MEDS: ZOSYN 2.25 GM in NS 50 ML IV SCH ×5 (02:05→21:36)
[2019-11-22] MEDS: DUONEB (A & A) INH SCH ×6 (02:46→22:55)
[2019-11-22 06:48] LABS: ALBUMIN 3.4 g/dL (3.5-5.0); CALCIUM 9.2 mg/dL (8.8-10.2); CREATININE 2.3 mg/dL (0.5-0.9); PHOSPHORUS 3.9 mg/dL (2.7-4.5); POTASSIUM 4.3 mmol/L (3.5-5.1)
[2019-11-22 07:05] LABS: BASO# 0.02 X1000 (0.0-0.2); BASO% 0.4 % (0.0-0.8); EOS# 0.23 X1000 (0.0-0.7); EOS% 4.3 % (0.0-10.0); HEMOGLOBIN 7.9 g/dL (12.0-16.0); IMM GRAN# 0.02 X1000 (0.0-0.04); IMM GRAN% 0.4 % (0.0-0.5); LYMPH# 1.18 X1000 (1.2-3.4); LYMPH% 21.9 % (20.5-51.1); MCHC 29.3 g/dL (33-37); MCV 99.3 FL (81-99); MONO% 9.3 % (1.7-9.3); MPV 9.8 FL (7.4-10.4); NEUT# 3.45 X1000 (1.4-6.5); NEUT% 63.7 % (42.2-75.2); PLT 203 X1000 (130-400); RBC 2.72 XMIL (4.2-5.4); RDW 14.2 % (11.5-14.5)
[2019-11-22] MEDS: HUMULIN R SUBQ SCH ×4 (07:08→21:29)
[2019-11-22] MEDS: DITROPAN PO SCH (08:26)
[2019-11-22] MEDS: FERROUS SULFATE PO SCH ×2 (08:26→21:37)
[2019-11-22] MEDS: COREG PO SCH ×2 (08:26→21:36)
[2019-11-22] MEDS: HYGROTON PO SCH (08:26)
[2019-11-22] MEDS: ISORDIL PO SCH ×3 (08:26→17:22)
[2019-11-22] MEDS: PROTONIX IV SCH ×2 (08:26→21:36)
[2019-11-22] MEDS: CELEXA PO SCH (08:26)
[2019-11-22] MEDS: SYNTHROID PO SCH (08:26)
[2019-11-22] MEDS: CENTRUM SILVER PO SCH (08:26)
[2019-11-22] MEDS: NEURONTIN PO SCH ×2 (08:26→21:36)
[2019-11-22] MEDS: PATIENT'S OWN MED PO SCH (08:27)
[2019-11-22] MEDS: SPIRIVA INH SCH (08:37)
--- NOTE | 2019-11-22 09:16 | PROGRESS NOTE ---
DATE: 11/22/2019 SUBJECTIVE: The patient reports feeling fine. No shortness of breath. No chest pain. According to nursing staff, no more episodes of coffee-grounds emesis. OBJECTIVE: Vital Signs: Temperature 97.9 degrees, heart rate 72, respiratory rate 19, blood pressure 195/80, O2 saturation 100% 2 L nasal cannula. General: This is a morbidly obese, chronically ill appearing, legally blind 64-year-old female lying in bed, in no acute distress. Cardiovascular: S1, S2 heard. No murmurs, gallops, or rubs. Regular rate and rhythm. Respiratory: There were crackles noted in both pulmonary lung bases. Definitely much better in comparing with admission. Patient is not using any accessory muscles or having work of breathing. Abdomen: Soft, nontender to palpation. Bowel sounds present. No organomegaly. Extremities: No clubbing or cyanosis, but there is still 1+ pedal edema. Neurological exam: Patient is alert and oriented x3. Moves 4 extremities. LABORATORY DATA: Reviewed. ASSESSMENT AND PLAN: 1. Bilateral multilobar pneumonia. The patient continues to be on Teflaro and Zosyn, day number 4 for both medications. Clinically, the patient is more stable. Requiring less oxygen supplementation. At this point, she is requiring 2 L of oxygen by nasal cannula. We will continue to monitor. 2. Acute respiratory failure secondary to condition number 1. We will continue to wean off oxygen for this patient. Clinically, she continues to feel better. 3. Chronic obstructive pulmonary disease exacerbation. We will continue with DuoNeb and antibiotics as we mentioned above. 4. Gastrointestinal bleeding. I think that condition has resolved. Hemoglobin is stable. The patient is supposed to have colonoscopy in the ID system. Gastroenterology is not planning to do any further workup for this patient unless hemoglobin drops. 5. History of congestive heart failure. We will continue home medications. The patient is stable. 6. Chronic kidney disease stage 3. Creatinine continues to be at baseline. We will continue to monitor. 7. Diabetes mellitus type 2. We will continue with the insulin and Accu-Chek before meals and also at bedtime. 8. Disposition. We are going to transfer this patient to a regular room today. cc: Rajiv Mullen MD
[2019-11-22] MEDS: TEFLARO 400 MG in NS 250 ML IV SCH ×2 (10:28→23:00)
[2019-11-22] MEDS: VITAMIN D PO SCH (21:36)
[2019-11-22] MEDS: LIPITOR PO SCH (21:36)
[2019-11-22] MEDS: LANTUS INSULIN SUBQ SCH (21:38)
[2019-11-23] MEDS: LANTUS INSULIN SUBQ SCH ×2 (01:31→21:50)
[2019-11-23] MEDS: ZOSYN 2.25 GM in NS 50 ML IV SCH ×4 (02:30→21:03)
[2019-11-23] MEDS: DUONEB (A & A) INH SCH ×6 (03:12→23:11)
[2019-11-23] MEDS: HUMULIN R SUBQ SCH ×4 (06:53→21:51)
[2019-11-23 07:38] LABS: BASO# 0.02 X1000 (0.0-0.2); BASO% 0.3 % (0.0-0.8); EOS# 0.22 X1000 (0.0-0.7); EOS% 3.8 % (0.0-10.0); IMM GRAN# 0.02 X1000 (0.0-0.04); IMM GRAN% 0.3 % (0.0-0.5); LYMPH# 1.23 X1000 (1.2-3.4); LYMPH% 21.2 % (20.5-51.1); MCH 29.3 PG (27-31); MCHC 29.6 g/dL (33-37); MCV 98.9 FL (81-99); MONO# 0.45 X1000 (0.11-0.59); MONO% 7.7 % (1.7-9.3); MPV 9.7 FL (7.4-10.4); NEUT# 3.87 X1000 (1.4-6.5); NEUT% 66.7 % (42.2-75.2); PLT 206 X1000 (130-400); RBC 2.73 XMIL (4.2-5.4); RDW 14.2 % (11.5-14.5); WBC 5.81 X1000 (4.8-10.8)
[2019-11-23 08:09] LABS: ALBUMIN 3.2 g/dL (3.5-5.0); CALCIUM 9.6 mg/dL (8.8-10.2); CREATININE 2.3 mg/dL (0.5-0.9); POTASSIUM 4.7 mmol/L (3.5-5.1)
[2019-11-23] MEDS: SPIRIVA INH SCH (09:11)
[2019-11-23] MEDS: PROTONIX IV SCH ×2 (10:26→21:03)
[2019-11-23] MEDS: SODIUM CHLORIDE 0.9% INJ SCH ×2 (10:26→21:04)
[2019-11-23] MEDS: CENTRUM SILVER PO SCH (10:27)
[2019-11-23] MEDS: DITROPAN PO SCH (10:27)
[2019-11-23] MEDS: FERROUS SULFATE PO SCH ×2 (10:27→21:04)
[2019-11-23] MEDS: NEURONTIN PO SCH ×2 (10:27→21:04)
[2019-11-23] MEDS: HYGROTON PO SCH (10:27)
[2019-11-23] MEDS: SYNTHROID PO SCH (10:27)
[2019-11-23] MEDS: CELEXA PO SCH (10:27)
[2019-11-23] MEDS: COREG PO SCH ×2 (10:27→21:04)
[2019-11-23] MEDS: ISORDIL PO SCH ×3 (10:27→16:18)
--- NOTE | 2019-11-23 10:51 | PROGRESS NOTE ---
DATE: 11/23/2019 SUBJECTIVE: The patient reports feeling fine. Denies any fever or chills. She is not requiring any oxygen supplementation. OBJECTIVE: Vital Signs: Temperature 97.2 degrees, heart rate 80, respiratory rate 20, blood pressure 174/63, O2 saturation 96% on room air. General: This is a morbidly obese, chronically ill-appearing, legally blind, 64-year-old, female, lying in bed in no acute distress. Cardiovascular: S1, S2 heard. No murmurs, gallops, or rubs. Regular rate and rhythm. Respiratory: Minimal crackles at both pulmonary bases, much better in comparing with admission. The patient is not using any accessory muscles or having work of breathing. Abdomen: Soft. Nontender to palpation. Bowel sounds present. No organomegaly. Extremities: No clubbing, cyanosis, but there is still 1+ pedal edema. Neurological: The patient is alert and oriented x3. Moves all 4 extremities. LABORATORY DATA: Reviewed. ASSESSMENT AND PLAN: 1. Bilateral multilobar pneumonia. Will continue with the Teflaro and Zosyn, day #5 for both medication. Not requiring any oxygen supplementation at this point, so will continue with the same management. 2. Acute respiratory failure secondary to condition #1, resolved. The patient is not requiring any oxygen supplementation. 3. Chronic obstructive pulmonary disease exacerbation. Will continue with the antibiotics as mentioned above. 4. Gastrointestinal bleeding. I think this condition has been completely resolved upon discharge. He is supposed to have colonoscopy in the CT System. Gastroenterology is not planning to do any further workup for this patient. 5. History of congestive heart failure, stable. Will continue to monitor. 6. Chronic kidney disease stage 3. Creatinine continues to be elevated some. Will continue to monitor. 7. Diabetes mellitus type 2. Will continue with insulin and Accu-Chek before meals and also at bedtime. 8. Disposition. I think this patient is better. I think we will continue with one more day of antibiotics, and tomorrow she can be discharged home with home health. cc: Rajiv Mullen MD [facility] CENTERMatt
[2019-11-23] MEDS: PATIENT'S OWN MED PO SCH (11:14)
[2019-11-23] MEDS: TEFLARO 400 MG in NS 250 ML IV SCH ×2 (11:14→21:49)
[2019-11-23] MEDS ORDERED: NS 500 ML ONE (11:21)
[2019-11-23] MEDS: LIPITOR PO SCH (21:04)
[2019-11-23] MEDS: VITAMIN D PO SCH (21:04)
[2019-11-24] MEDS: ZOSYN 2.25 GM in NS 50 ML IV SCH (03:57)
[2019-11-24] MEDS: DUONEB (A & A) INH SCH ×2 (04:34→08:22)
[2019-11-24] MEDS: HUMULIN R SUBQ SCH (06:47)
[2019-11-24 06:59] VITALS: BP 151/65
[2019-11-24 07:22] LABS: BASO# 0.03 X1000 (0.0-0.2); BASO% 0.4 % (0.0-0.8); EOS# 0.32 X1000 (0.0-0.7); EOS% 4.4 % (0.0-10.0); HEMOGLOBIN 8.6 g/dL (12.0-16.0); IMM GRAN# 0.03 X1000 (0.0-0.04); IMM GRAN% 0.4 % (0.0-0.5); LYMPH# 1.08 X1000 (1.2-3.4); LYMPH% 14.8 % (20.5-51.1); MCH 29.4 PG (27-31); MCHC 29.7 g/dL (33-37); MONO# 0.59 X1000 (0.11-0.59); MONO% 8.1 % (1.7-9.3); MPV 9.8 FL (7.4-10.4); NEUT# 5.24 X1000 (1.4-6.5); NEUT% 71.9 % (42.2-75.2); PLT 209 X1000 (130-400); RBC 2.93 XMIL (4.2-5.4); RDW 14.2 % (11.5-14.5); WBC 7.29 X1000 (4.8-10.8)
[2019-11-24 07:55] LABS: ALBUMIN 3.4 g/dL (3.5-5.0); CALCIUM 9.5 mg/dL (8.8-10.2); CREATININE 2.3 mg/dL (0.5-0.9); PHOSPHORUS 3.9 mg/dL (2.7-4.5); POTASSIUM 4.3 mmol/L (3.5-5.1)
[2019-11-24] MEDS: SPIRIVA INH SCH (08:22)
[2019-11-24] MEDS: HYGROTON PO SCH (09:34)
[2019-11-24] MEDS: SYNTHROID PO SCH (09:34)
[2019-11-24] MEDS: DITROPAN PO SCH (09:34)
[2019-11-24] MEDS: FERROUS SULFATE PO SCH (09:34)
[2019-11-24] MEDS: CENTRUM SILVER PO SCH (09:34)
[2019-11-24] MEDS: COREG PO SCH (09:34)
[2019-11-24] MEDS: ISORDIL PO SCH (09:34)
[2019-11-24] MEDS: CELEXA PO SCH (09:34)
[2019-11-24] MEDS: NEURONTIN PO SCH (09:34)
--- NOTE | 2019-11-24 12:38 | DISCHARGE SUMMARY ---
ADMISSION DATE: 11/18/2019 DISCHARGE DATE: 11/24/2019 DIAGNOSES: 1. Multilobar pneumonia bilateral. 2. Acute respiratory failure. The patient no longer requires oxygen supplementation. 3. Chronic obstructive pulmonary disease exacerbation. 4. History of congestive heart failure with an EF of 65%. 5. Chronic kidney disease stage 3. 6. Diabetes mellitus type 2. 7. Gastrointestinal bleed. The patient has had no more melanotic stools. Hemoglobin and hematocrit are stable. The patient has had no further coffee-grounds emesis are dark stools. CONSULTS: 1. Dr. Manuel Flores, Cardiology. 2. Dr. Rob Lockett, Gastroenterology. DIAGNOSTICS: 1. Chest x-ray revealed multilobar bilateral pneumonia. 2. CT of the chest revealed several severe bilateral multilobar pneumonia, right greater than left, hiatal hernia and gastroesophageal reflux. 3. Echocardiogram revealed an ejection fraction of 65% with normal left ventricular cavity size. Mild mitral regurgitation. No aortic stenosis or regurgitation. No pericardial effusion or obvious intracardiac mass or thrombus seen. 4. Microbiology. Blood cultures x2 revealed no growth after 5 days. 5. Influenza A and B were negative. 6. Stool for occult blood was negative. HOSPITAL COURSE: The patient presented to the emergency department complaining shortness of breath and several episodes of coffee-grounds emesis. She was found to have bilateral multilobar pneumonia for which she was initially treated with vancomycin and Zosyn and will be discharged on Omnicef. She presented with an O2 saturation of 71%. She did require supplemental oxygen until the and she has been on room air since with O2 saturations that have been 99 to 100 percent. She was found to be in a COPD exacerbation for which she was treated with DuoNeb and this has resolved. Her initial troponin was 48. Subsequent troponins were [address] Flores, Cardiology was consulted. He felt that the troponin was secondary to pneumonia and renal insufficiency as she had a cardiac workup with recent stress test that was unremarkable. He has recommended continuing her home medications. Creatinine stayed stable between 2.1 and 2.3, which is her normal. Hemoglobin A1c was 7.4. Blood sugars ranged in the 60 to 160 range throughout the hospitalization. As she did state that she had coffee-grounds emesis and hemoglobin and hematocrit were decreased [facility] gastroenterology was consulted as the patient had a recent EGD done at the [facility] with esophageal dilatation and has been found to have a hiatal hernia they opted to do no further testing at this time. Just monitor hemoglobin and hematocrit, which did stay in the 7 to 11 and 26 to 36 range. She had no further coffee-grounds emesis and her stool was negative for occult blood. Today the patient feels fine. She denies any fevers or chills. She is not requiring no oxygen and is thankfully ready for discharge. DISCHARGE VITAL SIGNS: Blood pressure is 151/65 with a heart rate of 66, respirations 18, temperature 98.2 degrees oral with room air saturations 94 to 99 percent. DISCHARGE PHYSICAL EXAMINATION: Cardiovascular: Regular rate and rhythm. S1 and S2 appreciated. No rubs, murmurs or gallops. Calves are nontender bilateral peripheral pulses palpable x4. She does have some bilateral 1+ pedal edema. Pulmonary: Breath sounds are clear with no increased work of breathing noted. Chest rises and falls symmetric with respiration. Chest wall is nontender to palpation. Gastrointestinal: Abdomen is soft, nontender, nondistended. Bowel sounds in all 4 quadrants. Genitourinary: No CVA or suprapubic tenderness. Neurologic: She is alert oriented x3. Skin is warm and dry. DISCHARGE MEDICATIONS: 1. Spiriva 18 mcg in inhalation daily. 2. Protonix 40 mg p.o. b.i.d. 3. Oxybutynin 5 mg p.o. daily. 4. Zofran 8 mg p.o. b.i.d. p.r.n. nausea. 5. Centrum Silver 1 p.o. daily. 6. Magnesium oxide 400 mg p.o. at bedtime. 7. Loratadine 10 mg p.o. at bedtime. 8. Levothyroxine 88 mcg p.o. daily. 9. Isordil 20 mg p.o. t.i.d. 10. Lantus 45 units subcutaneous at bedtime. 11. NovoLog FlexPen 4 units subcutaneous t.i.d. 12. Gabapentin 300 mg p.o. b.i.d. 13. Ferrous sulfate 324 mg p.o. b.i.d. 14. Celexa 40 mg p.o. daily. 15. Vitamin D3 1000 units p.o. at bedtime. 16. Chlorthalidone 25 mg p.o. daily. 17. Omnicef 300 mg p.o. b.i.d. for 10 days. 18. Carvedilol 12.5 mg p.o. b.i.d. 19. Lipitor 80 mg p.o. at bedtime. 20. Aspirin 81 mg p.o. daily. 21. Alogliptin 6.25 mg p.o. daily. 22. ProAir RespiClick 2 puffs q.6 hours p.r.n. wheezing. 23. Tylenol Arthritis 1300 mg p.o. b.i.d. DISPOSITION: She is being discharged home with [facility] ins table condition. FOLLOW-UP INSTRUCTIONS: 1. Dr. Flores, cardiology as needed. 2. Primary care provider at the [facility] in [place]. She needs to follow up as scheduled. She needs to call in the morning to reschedule her colonoscopy as well as any appointment she had missed while being in the hospital. She also needs to notify Gastroenterology at the [facility] of her hospitalization so that they can plan appointments accordingly. 3. Her primary care physician at the [facility], she is to follow up as scheduled. TIME SPENT: This is a greater than 30 minute discharge. Dictated by GRZEGORZ Espinoza for Rajiv Mullen MD cc: GRZEGORZ Espinoza MD
== END 2019-11-24 09:56 | disposition home health service (06) | DRG 193 ==
LOC: ED 23:52 → EDIPHOLD 11-18 09:15 → 2N 11-18 18:34 → 4N 11-22 11:33
PROVIDERS: ATTEND Internal Medicine